=== PATIENT | male | born 1975 | race Caucasian/White ===

== ENCOUNTER 2016-08-26 12:05 | Emergency (ER) | payer BC, MEDICAID ==
[2016-08-26] MEDS ORDERED: PREDNISONE 20 MG TABLET PO ONE (12:29)
[2016-08-26] MEDS ORDERED: IPRATROPIUM/ALBUTEROL 0.5-2.5 MG/3 ML AMPUL NEB ONE (12:29)
--- NOTE | 2016-08-26 12:31 | ER Document Report ---
ED Medical Screen (RME) - General Chief Complaint: Cough Stated Complaint: DIFFICULTY BREATHING Notes: Patient has had increasing difficulty breathing and cough and chest congestion for the past week. He has a history of sarcoid and is on home nebulizers and treatments with Advair, Spiriva, and DuoNeb. He is coughing a lot and not getting up a lot of phlegm. Has not had a fever. These symptoms are similar to ones he's had in the past when he's had pneumonia. No smoker for 5 years Patient has fine expiratory wheezes bilaterally. TRAVEL OUTSIDE OF THE [place] IN LAST 30 DAYS: No - Related Data Allergies/Adverse Reactions: No Known Allergies Allergy (Verified 08/26/16 12:12) Past Medical History Pulmonary Medical History: Reports: Hx Asthma Renal/ Medical History: Denies: Hx Peritoneal Dialysis Psychiatric Medical History: Denies: Hx Depression Past Surgical History: Reports: Hx Vascular Surgery - left leg artery repaired from trauma - Immunizations Hx Diphtheria, Pertussis, Tetanus Vaccination: Yes - 2009 Physical Exam - Vital signs Vitals: Temp Pulse Resp BP Pulse Ox 98.1 F 65 18 123/81 96 08/26/16 12:11 08/26/16 12:11 08/26/16 12:11 08/26/16 12:11 08/26/16 12:11 Course - Vital Signs Vital signs: Temp Pulse Resp BP Pulse Ox 98.1 F 65 18 123/81 96 08/26/16 12:11 08/26/16 12:11 08/26/16 12:11 08/26/16 12:11 08/26/16 12:11
--- NOTE | 2016-08-26 13:52 | ER Document Report ---
ED Respiratory Problem - General Mode of Arrival: Ambulatory Information source: Patient TRAVEL OUTSIDE OF THE [place] IN LAST 30 DAYS: No - HPI Patient complains to provider of: Other - sarcoid Onset: Other - see HPI note Associated symptoms: Chest pain/discomfort, Congestion, Short of breath Similar symptoms previously: Yes Recently seen / treated by doctor: No - General Chief Complaint: Cough Stated Complaint: DIFFICULTY BREATHING Notes: Patient is a 40-year-old male presents to emergency department for difficulty breathing, cough, and chest congestion. Patient has a history of sarcoid and is on multiple nebulizer treatments, including Advair, Spiriva, and DuoNebs. Patient was diagnosed with sarcoid 6 years ago by a certified teacher assistant in [place]. Patient states that he lost his dad and his insurance changed so he was no longer able to see that certified teacher assistant anymore. Patient states that his primary care physician prescribes his nebulizer medications. Patient states he also has a rescue inhaler, which he has been using more frequently over the last couple of weeks. Patient is a former smoker but has not smoked in 5 years. Patient has also had a history of pneumonia. Patient states he is coughing more than usual and it is worse at night. Patient states he has a tightness that is relieved with breathing treatments for that. Return doctors a couple of hours. Patient states he had a blood clot 2009 after a surgery. Patient denies any fevers or chills. Patient has no known allergies. (HARISH LEA) - Related Data Allergies/Adverse Reactions: No Known Allergies Allergy (Verified 08/26/16 12:12) Past Medical History - General Information source: Patient - Social History Smoking Status: Former Smoker Chew tobacco use (# tins/day): No Frequency of alcohol use: None Drug Abuse: None Family History: None Patient has suicidal ideation: No Patient has homicidal ideation: No - Medical History Medical History: Other - sarcoid Pulmonary Medical History: Reports: Hx Asthma Past Surgical History: Reports: Hx Vascular Surgery - left leg artery repaired from trauma - Immunizations Hx Diphtheria, Pertussis, Tetanus Vaccination: Yes - 2009 Hx Pneumococcal Vaccination: 05/06/11 Review of Systems - Review of Systems Constitutional: No symptoms reported EENT: See HPI, Nose congestion Cardiovascular: See HPI, Chest pain Respiratory: See HPI, Cough, Short of breath Gastrointestinal: No symptoms reported Genitourinary: No symptoms reported Male Genitourinary: No symptoms reported Musculoskeletal: No symptoms reported Skin: No symptoms reported Hematologic/Lymphatic: No symptoms reported Neurological/Psychological: No symptoms reported -: Yes All other systems reviewed and negative Physical Exam - Vital signs Interpretation: Normal - General General appearance: Appears well, Alert In distress: Mild - HEENT Head: Normocephalic, Atraumatic Eyes: Normal Pupils: PERRL Mucous membranes: Moist - Respiratory Respiratory status: No respiratory distress Chest status: Nontender Breath sounds: Wheezing - expiratory wheezes Chest palpation: Normal - Cardiovascular Rhythm: Regular Heart sounds: Normal auscultation Murmur: No - Abdominal Inspection: Normal Distension: No distension Bowel sounds: Normal Tenderness: Nontender Organomegaly: No organomegaly - Back Back: Normal, Nontender - Extremities General upper extremity: Normal inspection, Normal ROM, Normal strength General lower extremity: Normal inspection, Normal ROM, Normal strength - Neurological Neuro grossly intact: Yes Cognition: Normal Orientation: AAOx4 Germán Coma Scale Eye Opening: Spontaneous Germán Coma Scale Verbal: Oriented [place] Coma Scale Motor: Obeys Commands [place] Coma Scale Total: 15 Speech: Normal Sensory: Normal - Psychological Associated symptoms: Normal affect, Normal mood - Skin Skin Temperature: Warm Skin Moisture: Dry Course - Re-evaluation Re-evalutation: 08/26/16 14:44 Patient with history of sarcoidosis once. Advair and home nebulizers presents with a one-week history of increasing cough. No fever no chills nonproductive no nausea vomiting diarrhea weight loss or night sweats. He denies a history of smoking. He had a DVT and number of years ago but no PE no shortness of breath exertional chest pain or dyspnea on exertion. No cardiac history. Chest x-ray is negative patient improved with albuterol and prednisone. Going to discharge him on prednisone Augmentin is immunocompromised follow up with his private care physician one to 2 days and return for increasing worsening or new symptoms. Patient's vital signs are stable he is in no respiratory distress and O2 sat is 96% on room air. 08/27/16 05:37 (MIKAELA CAZARES) - Vital Signs Vital signs: Temp Pulse Resp BP Pulse Ox 98.5 F 70 16 111/77 93 08/26/16 15:20 08/26/16 15:20 08/26/16 15:20 08/26/16 15:20 08/26/16 15:20 Discharge - Discharge Clinical Impression: sarcoidosis Acute bronchitis Qualifiers: Bronchitis organism: unspecified organism Qualified Code(s): J20.9 - Acute bronchitis, unspecified Condition: Stable Disposition: HOME, SELF-CARE Additional Instructions: Bronchitis You have acute bronchitis. This disease is an infection or inflammation of the air passageways in your lungs. Symptoms usually include cough, low grade fever, shortness of breath, and wheezing. The cough usually persists for a couple of weeks. Most cases of bronchitis get better without antibiotics. We prescribe antibiotics when we believe bacteria are damaging your airways, or if there's high risk the bronchitis will worsen into pneumonia. Increase your fluid intake. A cool mist humidifier may make your lungs more comfortable. An expectorant (cough medicine that loosens phlegm) can help. If you smoke, STOP!!! Recovery from bronchitis can be somewhat slow, but you should see improvement within a day or two. Repeated episodes of bronchitis may result in lung damage -- for example, chronic bronchitis, recurrent pneumonias, or emphysema. Call the doctor if you develop increasing fever, shortness of breath, chest pain, bloody sputum, or otherwise worsen. If you have not improved at all after several days, contact the physician. Follow-up with her primary care physician one to 2 days return for increasing worsening or new symptoms Prescriptions: Amox Tr/Potassium Clavulanate [Augmentin 875-125 Tablet] 1 tab PO BID 10 Days Prednisone [Deltasone 20 mg Tablet] 3 tab PO DAILY 5 Days Scribe Attestation: 08/26/16 14:46 I personally performed the services described in the documentation reviewed the documentation recorded by my scribe in my presence and it accurately and completely records my words and actions (MIKAELA CAZARES) Scribe Documentation - Scribe Written by Enmanuel:: Harish Lea 08/26/16 15:55 acting as scribe for :: Иван
[2016-08-26 15:24] VITALS: BP 111/77
== END 2016-08-26 15:22 | disposition home or self-care (01) ==
LOC: ER 12:05
DX: D86.9 Sarcoidosis, unspecified (principal); J20.9 Acute bronchitis, unspecified; R05 Cough; R06.02 Shortness of breath; R09.89 Other specified symptoms and signs involving the circulatory and respiratory systems; Z87.891 Personal history of nicotine dependence
CPT/HCPCS: 94640; 99283; 87070; 87205; 71020; J7512; J7620

== ENCOUNTER 2016-08-27 17:38 | Inpatient (IN) | payer MEDICAID ==
--- NOTE | 2016-08-27 18:18 | ER Document Report ---
ED Respiratory Problem - General Stated Complaint: SHORT OF BREATH Time seen by provider: 18:16 Mode of Arrival: Medic Information source: Patient Notes: This is a 40-year-old man with a history of sarcoidosis of, pneumonia, the VTE who presents to the emergency room with progressive shortness of breath over the last week and half associate with a nonproductive cough. Patient was evaluated in the emergency room yesterday, treated with nebs and steroids and released. EMS was called to his home because of worsening shortness of breath despite 4-5 nebs at home today. EMS reports that the patient's oxygen saturation was 89% on room air. He was treated by EMS with 2 nebs, IV Solu- Medrol and transported to the ER. Meds: Don't nebs, Advair, Spiriva, rescue albuterol, prednisone since yesterday. No known drug allergies Primary care physician: Family care in [place] TRAVEL OUTSIDE OF THE [place] IN LAST 30 DAYS: No - HPI Patient complains to provider of: COPD Onset: Last week Duration: Continuous Initiating Event: No: Allergy, Aspiration/Choking, Exertion, Exposure to chemicals, Exposure to dust, Exposure to fumes, Exposure to mold, Exposure to smoke, Out of meds, Sports/exercise, URI, Other Quality of pain: No pain Severity: None Pain Level: Denies Context: Hx COPD, Other - Sarcoidosis Short of Breath: Moderate Cough: Nonproductive Sputum amount: Scant Sputum color: Singer At home treatment: Bronchodilators EMS treatments: Bronchodilators, Solumedrol Associated symptoms: Congestion, Cough, Short of breath, Wheezing Similar symptoms previously: Yes Recently seen / treated by doctor: Yes - Related Data Allergies/Adverse Reactions: No Known Allergies Allergy (Verified 08/27/16 19:52) Home Medications: Current Home Medications Albuterol Sulfate [Proair HFA] 2 puff IN Q4H PRN 08/27/16 [History] Past Medical History - General Information source: Patient - Social History Smoking Status: Former Smoker Cigarette use (# per day): No - quit 5 years ago Chew tobacco use (# tins/day): No Smoking Education Provided: No Frequency of alcohol use: None Drug Abuse: None Lives with: Family Family History: None Patient has suicidal ideation: No Patient has homicidal ideation: No - Past Medical History Cardiac Medical History: Reports: None Pulmonary Medical History: Reports: Hx Asthma, Hx COPD, Other - Pulmonary fibrosis EENT Medical History: Reports: None Neurological Medical History: Reports: None Endocrine Medical History: Reports: None Renal/ Medical History: Reports: None Malignancy Medical History: Reports None GI Medical History: Reports: None Musculoskeltal Medical History: Reports None Skin Medical History: Reports None Psychiatric Medical History: Denies: Hx Depression Traumatic Medical History: Reports: None Past Surgical History: Reports: Hx Vascular Surgery - left leg artery repaired from trauma - Immunizations Hx Diphtheria, Pertussis, Tetanus Vaccination: Yes - 2009 Hx Pneumococcal Vaccination: 05/06/11 Review of Systems - Review of Systems Constitutional: denies: Chills, Fever EENT: See HPI Cardiovascular: No symptoms reported Respiratory: See HPI Gastrointestinal: No symptoms reported Genitourinary: No symptoms reported Male Genitourinary: No symptoms reported Musculoskeletal: No symptoms reported Skin: No symptoms reported Hematologic/Lymphatic: No symptoms reported Neurological/Psychological: No symptoms reported Physical Exam - Vital signs Vitals: Temp Pulse Resp BP Pulse Ox 97.8 F 120 H 18 113/79 96 08/27/16 17:45 08/27/16 17:45 08/27/16 17:45 08/27/16 17:45 08/27/16 17:45 Notes: Physical exam: GENERAL: 40-year-old man, alert and oriented 3, appears short of breath HEAD: Atraumatic, normocephalic. EYES: Pupils equal round and reactive to light, extraocular movements intact, sclera anicteric, conjunctiva are normal. ENT: TMs normal, nares patent, oropharynx clear without exudates. Moist mucous membranes. NECK: Normal range of motion, supple without lymphadenopathy or JVD. LUNGS: Bilateral wheezing, accessory muscle use. HEART: Regular rate and rhythm without murmurs, rubs or gallops. ABDOMEN: Soft, normoactive bowel sounds. No tenderness to palpation. No guarding, no rebound. No masses appreciated. EXTREMITIES: Normal range of motion, no pitting or edema. No clubbing or cyanosis. NEUROLOGICAL: Cranial nerves II through XII grossly intact. Normal speech, normal gait. PSYCH: Normal mood, normal affect. SKIN: Warm, Dry, normal turgor, no rashes or lesions noted. Course - Vital Signs Vital signs: Temp Pulse Resp BP Pulse Ox 97.6 F 86 17 99/59 L 96 08/28/16 03:49 08/28/16 03:49 08/28/16 03:49 08/28/16 03:49 08/28/16 03:49 - Laboratory Result Diagrams: 08/27/16 18:10 08/27/16 18:10 Laboratory results interpreted by me: 08/27/16 08/27/16 18:10 18:10 WBC 12.1 H Seg Neutrophils % 90.2 H Lymphocytes % 5.9 L Monocytes % 2.1 L Absolute Neutrophils 10.9 H Glucose 129 H - Diagnostic Test Radiology reviewed: Image reviewed, Reports reviewed - Chest x-ray shows chronic changes from sarcoidosis. CTA shows no evidence of PE. - EKG Interpretation by Me Rate: Tachycardia Rhythm: NSR - SR vrate 99, nonspecific ST changes. No acute ST-T wave changes. Critical Care Note - Critical Care Note Total time excluding time spent on procedures (mins): 60 Discharge - Discharge Clinical Impression: acute COPD exacerbation Condition: Stable Disposition: ADMITTED INPATIENT Admitting Provider: Hospitalist - Dr. Scales Unit Admitted: Telemetry
[2016-08-27] MEDS ORDERED: CEFTRIAXONE 1 GM/D5W RTU 50 ML IV ONE (18:19)
[2016-08-27 18:21] LABS: ABSOLUTE EOSINOPHILS # (AUTO) 0.2 10^3/uL (0.0-0.6); ABSOLUTE LYMPHOCYTES (AUTO) 0.7 10^3/uL (0.5-4.7); ABSOLUTE MONOCYTES (AUTO) 0.3 10^3/uL (0.1-1.4); ABSOLUTE NEUT (AUTO) 10.9 10^3/uL (1.7-8.2); BASOPHILS % (AUTO) 0.3 % (0-2); EOSINOPHILS % (AUTO) 1.5 % (0-6); HEMATOCRIT 42.7 % (37.9-51.0); HEMOGLOBIN 14.2 g/dL (13.5-17.0); HGB HCT DIFFERENCE -0.1; LYMPHOCYTES % (AUTO) 5.9 % (13-45); MEAN CORPUSCULAR HEMOGLOBIN 30.1 pg (27.0-33.4); MEAN CORPUSCULAR HGB CONC 33.4 g/dL (32.0-36.0); MEAN CORPUSCULAR VOLUME 90 fl (80-97); MONOCYTES % (AUTO) 2.1 % (3-13); RED BLOOD COUNT 4.74 10^6/uL (4.35-5.55); RED CELL DISTRIBUTION WIDTH 13.6 % (11.5-14.0); SEGMENTED NEUTROPHILS % (AUTO) 90.2 % (42-78); WHITE BLOOD COUNT 12.1 10^3/uL (4.0-10.5)
[2016-08-27] MEDS ORDERED: MAGNESIUM SULFATE/D5W 100 ML IV SCH (18:30)
[2016-08-27 18:34] LABS: ALANINE AMINOTRANSFERASE 25 U/L (21-72); ALBUMIN 4.1 g/dL (3.5-5.0); ALKALINE PHOSPHATASE 76 U/L (38-126); ANION GAP 15 (5-19); ASPARTATE AMINO TRANSFERASE 20 U/L (17-59); BILIRUBIN,DIRECT 0.3 mg/dL (0.0-0.4); BILIRUBIN,TOTAL 0.4 mg/dL (0.2-1.3); BLOOD UREA NITROGEN 13 mg/dL (7-20); CALCIUM 9.9 mg/dL (8.4-10.2); CARBON DIOXIDE 25 mmol/L (22-30); CHLORIDE 105 mmol/L (98-107); CREATININE RESULT 0.78 mg/dL (0.52-1.25); GLUCOSE 129 mg/dL (75-110); POTASSIUM 4.6 mmol/L (3.6-5.0); SODIUM 144.9 mmol/L (137-145); TOTAL PROTEIN 7.7 g/dL (6.3-8.2)
[2016-08-27] MEDS ORDERED: IPRATROPIUM/ALBUTEROL 0.5-2.5 MG/3 ML AMPUL NEB ONE ×2 (19:22→20:50)
--- NOTE | 2016-08-27 21:37 | EKG REPORT ---
SEVERITY:- ABNORMAL ECG - SINUS TACHYCARDIA CONSIDER LEFT VENTRICULAR HYPERTROPHY NONSPECIFIC T ABNORMALITIES, INFERIOR LEADS : Confirmed by: Yovani Hudson 27-Aug-2016 21:35:18
[2016-08-27 21:41] LABS: APPEARANCE,URINE CLEAR; BILIRUBIN,URINE NEGATIVE (NEGATIVE); GLUCOSE, URINE NEGATIVE (NEGATIVE); KETONES,URINE NEGATIVE (NEGATIVE); LEUKOCYTE ESTERASE,URINE NEGATIVE (NEGATIVE); NITRITE,URINE NEGATIVE (NEGATIVE); PROTEIN,URINE NEGATIVE (NEGATIVE); URINE SPECIFIC GRAVITY 1.049; UROBILINOGEN,URINE NEGATIVE mg/dL (<2.0)
[2016-08-27] MEDS ORDERED: ALBUTEROL SULFATE 0.083% NEB 2.5 MG/3 ML AMPUL NEB PRN (23:20)
[2016-08-27] MEDS ORDERED: GUAIFENESIN SYRP 200 MG/10 ML UDC PO PRN (23:20)
[2016-08-27] MEDS ORDERED: ACETAMINOPHEN 325 MG TABLET PO PRN (23:20)
[2016-08-27] MEDS ORDERED: INSULIN LISPRO 100 UNIT/ML 3 ML VIAL SUBCUT PRN (23:22)
[2016-08-27] MEDS ORDERED: DEXTROSE 40% GEL 15 GM TUBE PO PRN ×2 (23:22)
[2016-08-27] MEDS ORDERED: DEXTROSE 50%-WATER 25 GM/50 ML DISP.SYRIN IV PRN ×2 (23:22)
[2016-08-27] MEDS ORDERED: GLUCAGON,HUMAN RECOMB 1 MG INJ IM PRN (23:22)
[2016-08-27] MEDS ORDERED: AZITHROMYCIN INJ 500 MG VIAL IV PRN (23:36)
[2016-08-27] MEDS ORDERED: AZITHROMYCIN 500 MG in DEXTROSE 5%-WATER 250 ML IV SCH (23:45)
[2016-08-28 05:46] LABS: HEMATOCRIT 39.6 % (37.9-51.0); HEMOGLOBIN 13.4 g/dL (13.5-17.0); HGB HCT DIFFERENCE 0.6; MEAN CORPUSCULAR HEMOGLOBIN 30.2 pg (27.0-33.4); MEAN CORPUSCULAR HGB CONC 33.7 g/dL (32.0-36.0); MEAN CORPUSCULAR VOLUME 90 fl (80-97); RED BLOOD COUNT 4.43 10^6/uL (4.35-5.55); RED CELL DISTRIBUTION WIDTH 13.9 % (11.5-14.0); WHITE BLOOD COUNT 10.6 10^3/uL (4.0-10.5)
[2016-08-28] MEDS ORDERED: LANSOPRAZOLE 30 MG TAB.RAP.DR PO SCH (06:00)
[2016-08-28 06:26] LABS: BASOPHILS % (MANUAL) 0 % (0-2); EOSINOPHILS % (MANUAL) 0 % (0-6); LYMPHOCYTES % (MANUAL) 2 % (13-45); TOTAL CELLS COUNTED 100
[2016-08-28 06:27] LABS: ANISOCYTOSIS SLIGHT
[2016-08-28] MEDS ORDERED: ENOXAPARIN SODIUM INJ 40 MG/0.4 ML DISP.SYRIN SUBCUT SCH (08:00)
[2016-08-28] MEDS: IPRATROPIUM/ALBUTEROL 0.5-2.5 MG/3 ML AMPUL NEB SCH ×2 (08:25→14:02)
[2016-08-28] MEDS ORDERED: NICOTINE 7 MG/24 HR PATCH.TD24 TD PRN (08:57)
--- NOTE | 2016-08-28 08:57 | PDOC H&P ---
History of Present Illness Admission Date/PCP: 08/27/16 22:14 PCP None Patient complains of: SOB History of Present Illness: WYATT ELIAS is a 40 year old male with underlying nonhome O2 dependent COPD, along with underlying sarcoidosis, and a history of DVT in 2009 after surgery, with Coumadin having being stopped by his physician, who presents to the emergency room for evaluation of approximately a 10 day history of slowly progressive difficulty breathing, with associated dry cough. Breathing is particularly worse with much of any exertion. He denies fever chills, nausea vomiting, diarrhea or dysuria. No chest pain. Was evaluated in the emergency room on the and discharged home with with nebs and steroids. However, EMS was called to his home by because of worsening shortness of breath despite 4-5 nebulizer treatments at home. 89% saturation on room air per EMS. Was treated en route with intravenous Solu- Medrol, along with 2 further nebulizer treatments. Breathing has been improved significantly, but patient still does not feel comfortable going home. States that even on a good day he will wheeze, which is typically relieved with albuterol treatments in the morning. No previous intubation for respiratory difficulty. No hospital stay or antibiotic use over the past 3 months. Patient has been discussed with emergency room physician who evaluated the patient. . Laboratory results are listed in [facility] and are reviewed. X-ray summary results are listed below, with full report(s) reviewed. . EKG reviewed. And compared to prior tracing from November 26 of last year. Social history/personal habits: Patient has a long-term live-in partner. Has children. Chews tobacco. 2 beers a day. No illicit drug use. Allergies/adverse reactions NKDA. Home medications prescription medications basically consist of Spiriva, Advair, DuoNeb's, and albuterol rescue inhaler. Home medications initially autopopulated into [facility] may not accurately reflect patient's true medications, dosages, and/or frequencies. special effects technician to reconcile medications. Unfortunately, patient not completely certain of all his dosages/frequencies. REVIEW OF SYSTEMS: Constitutional: No fever or chills. Eyes: No current vision complaints. ENT: No swallowing problems or complaints. Partial hearing loss. Pulmonary: See history and present illness. Cardiovascular: No current complaints, including chest pain. Gastrointestinal: No current complaints, including nausea or vomiting. Skin: No current complaints, including rashes. Hematologic: No unusual easy bruising or bleeding. Neurologic: No current complaints, including numbness or tingling. Musculoskeletal: Joint pain from arthritis. Psychiatric: No current complaints, including anxiety or depression. Endocrine: No current complaints, including polyuria. Genitourinary: No current complaints, including dysuria. PHYSICAL EXAMINATION: 5 feet 6 inches tall. 58.97 kg. BMI 21 kg/m. Blood pressure 109/76. Pulse 83 and regular. 96% saturation on 2 L oxygen per nasal cannula. Respirations are 19 and unlabored. Temperature 97.3. Thin otherwise well-developed male, who appears a number of years older than his stated age. Pleasant awake alert and cooperative. Appears to feel perhaps a bit under the weather, so to speak. Mildly anxious, without agitation. Skin is warm and dry. No grossly obvious evidence of rash in areas of skin examined. No subcutaneous nodules palpated. ENT: Hearing grossly normal to normal conversation. Tongue midline on protrusion pink and slightly tacky. Eyes: No scleral icterus. Pupils equal and reactive to light at 4 mm. Effort conjunctivae. Neck is supple and nontender to gentle active range of motion and palpation. Midline trachea. No palpable thyroid nodule mass enlargement or tenderness. Lymphatic: No palpable cervical or clavicular nodes. Neck and lymphatic exams limited by patient body habitus. Psychiatric: Reasonable insight into acute and chronic medical issues. Oriented to time location and why here. Lungs: Auscultation reveals equal breath sounds bilaterally. No use of accessory respiratory muscles. Subtle brief early expiratory wheezing bilaterally. Cardiovascular: Heart regular rate and rhythm, without gallop murmur or rub. No carotid or abdominal aortic bruits. No ankle edema. Abdomen: soft, slightly distended nontender with positive bowel sounds. Unable to adequately evaluate abdomen for masses or organomegaly due to distention. Extremities: No calf tenderness to compression. No grossly obvious visual evidence of calf swelling. Gentle manipulation of lower extremities fails to reveal any obvious evidence of injury or instability to knees hips or ankles. Neurologic: Moves upper extremities grossly normally. Patellar reflexes absent. Dorsiflexion and plantarflexion of feet 5 / 5 and symmetric. Past Medical History Cardiac Medical History: Reports: None, DVT - History of Denies: Congestive Heart Failure, Myocardial Infarction, Hyperlipidema, Hypertension, Pulmonary Embolism Pulmonary Medical History: Reports: Chronic Obstructive Pulmonary Disease (COPD) , Pneumonia, Other - Pulmonary fibrosis and sarcoidosis Denies: Asthma EENT Medical History: Reports: Ears - Partial hearing loss Neurological Medical History: Denies: Hemorrhagic CVA, Ischemic CVA, Seizures Endocrine Medical History: Denies: Diabetes Mellitus Type 1, Diabetes Mellitus Type 2, Hyperthyroidism, Hypothyroidism Renal/ Medical History: Reports: None Malignancy Medical History: Reports: None GI Medical History: Denies: Cirrhosis, Gastroesophageal Reflux Disease, Hepatitis, Peptic Ulcer Disease Musculoskeltal Medical History: Reports: Arthritis Skin Medical History: Reports: None Psychiatric Medical History: Reports: Tobacco Dependency Denies: Alcohol Dependency, Depression, General Anxiety Disorder, Substance Abuse Traumatic Medical History: Reports: None Hematology: Reports: None Infectious Medical History: Reports: Methicillin-Resistant Staph Aureus - History of skin infection Denies: Clostridium Difficile, Hepatitis B, Hepatitis C Past Surgical History Past Surgical History: Reports: Vascular Surgery - left leg artery repaired from trauma Social History Information Source: Patient, Emergency Med Personnel, [facility] Records Lives with: Spouse/Significant other Smoking Status: Unknown if Ever Smoked - Chews tobacco Frequency of Alcohol Use: Social - 2 beers a day Hx Recreational Drug Use: No Drugs: None Hx Prescription Drug Abuse: No - Advance Directive Resuscitation Status: Full Code Surrogate healthcare decision maker:: His long-term live-in partner Eleni Family History Family History: None Parental Family History Reviewed: Yes - father with lung problems. Mother alive and healthy. Children Family History Reviewed: Yes - Healthy Sibling(s) Family History Reviewed.: Yes - Healthy Medication/Allergy Home Medications: RX: Albuterol Sulfate [Proair HFA] 2 puff IN Q4HP PRN 08/27/16 Levofloxacin [Levaquin 750 mg Tablet] 750 mg PO DAILY #10 tab 08/28/16 RX: Fluticasone/Salmeterol [Advair 250-50 Diskus 14 Dose/Diskus] 1 puff IH Q12 08/28/16 RX: Ipratropium/Albuterol Sulfate [Iprat-Albut 0.5-3(2.5) mg/3 ml] 3 ml NEB Q6 08/28/16 RX: Prednisone [Deltasone 20 mg Tablet] 60 mg PO DAILY #50 tablet 08/28/16 RX: Tiotropium [place] [Spiriva Handihaler 5 Cap/Kit (18 Mcg/Cap)] 1 puff IH DAILY 08/28/16 Allergies/Adverse Reactions: No Known Allergies Allergy (Verified 08/27/16 19:52) Physical Exam Vital Signs: Temp Pulse Resp BP Pulse Ox 97.8 F 120 H 17 109/76 98 08/27/16 17:45 08/27/16 17:45 08/27/16 22:01 08/27/16 22:01 08/27/16 22:01 Results Impressions: Chest X-Ray 08/27/16 17:55 IMPRESSION: There are chronic lung changes consistent with the given history of sarcoidosis. Chest/Abdomen CTA 08/27/16 19:22 IMPRESSION: NORMAL CTA OF THE CHEST. NO PULMONARY EMBOLI. STABLE CHRONIC SCARRING AND PULMONARY FIBROSIS. NO SIGNIFICANT CHANGE. NO ACUTE FINDINGS. Assessment & Plan - Diagnosis (1) COPD exacerbation Is this a current diagnosis for this admission?: YesPlan: Patient will be admitted under COPD exacerbation protocol. Incentive spirometry twice a day. Scheduled DuoNeb's. PRN albuterol nebs daily prednisone. Prevacid for gastritis prophylaxis. Antibiotics will consist of Rocephin and intravenous Zithromax.. I strongly encouraged patient to notify staff should patient feel that his breathing is worsening. Patient is a full code. I have strongly urged patient to be careful getting out of bed, to avoid a fall with injury. Knee high SCDs for DVT prophylaxis, along with subcutaneous Lovenox Impression and plans were discussed with patient, who concurs. Time spent in evaluation and management of patient: 64 minutes. (2) Sarcoidosis Is this a current diagnosis for this admission?: Yes (3) Tobacco dependency Is this a current diagnosis for this admission?: YesPlan: When necessary nicotine patch. (4) DVT prophylaxis Is this a current diagnosis for this admission?: Yes - Inpatient Certification Based on my medical assessment, after consideration of the patient's comorbidities, presenting symptoms, or acuity I expect that the services needed warrant INPATIENT care.: Yes I certify that my determination is in accordance with my understanding of Medicare's requirements for reasonable and necessary INPATIENT services [42 CFR 412.3e].: Yes Medical Necessity: Significant Comorbidiites Make Outpatient Treatment Too Risky , Need Close Monitoring Due to Risk of Patient Decompensation, Need for Nebulizer Therapy and Monitoring of Response, Need for IV Antibiotics, Risk of Complication if Not Cared For in Hospital Post Hospital Care: D/C or Transfer Summary
--- NOTE | 2016-08-28 09:58 | Physician Advisory Note ---
Physician Advisor ProgressNote .: Pursuant to the plan for [facility], I have reviewed the medical record for this patient. Physician Advisor Statement: Possible documentation opportunities if attending agrees: 1. "Mild Acute Hypoxemic Resp Failure w/sat 89% RA for EMS, (+)accessory muscle use still in ED" 2. "Suspected Acute bronchitis" [what is being tx'd w/abx] 3. "Medical Necessity" - Please document the reasons pt still not sufficiently stabilized for d/c to home on 08/28, to support Inpt status determination. - If pt is actually sufficiently improved today for d/c to home, please document clearly that pt was definitely not expected, at time of admission, to be sufficiently improved for d/c before 2 MNs of hospital care, & that you were surprised that pt was so much improved today (As long as you agree, of course. If you believe pt should have been Outpt Obs to start, please order Obs before you d/c pt. This is a Medicaid pt, so Obs order change can be made retroactively.) As always, if concerned about any unstable VS or abnormal labs, please comment on them - what bad things they might indicate, why they concern you - & note what doing about them. Please also document each day the potential clinical problems you are concerned could occur if pt not kept in hospital for tx at this time. (These points are linder - if present in each note, attending's status decision should be sufficiently supported.) Discussion: 40yo male w/ chronic co-morbidities including COPD, pulm firosis/sarcoidosis, DVT post surg, some wheezing at baseline - despite already on Advair, Spiriva, Duonebs, & prn Albuterol inhaler - presented 08/27 PM to ED w/worsening SOB despite tx the day before in ED w/ nebs & steroid, & use of 4-5 nebs at home. EMS found sat 89% RA, & gave 2 nebs , IV SOlumedrol. In ED, pt appeared SOB, w/(+) accessory muscle use per ED dr. RANGEL gave duonebs x2, Rocephin IV. (+) HR 120, RR18, BP 113/79, WBC 12.1, Hgb 14.2, Na 145, K 4.6, glc 129, CT-A neg for PE. (+) "subtle, brief wheezing" for attending, pt's breathing after ED txs "much better but pt still not comfortable going home". Attending ordered prednisone 60mg daily (current guidelines recommend po prednisone rather than IV Solumedrol when possible), IV Rocephin & Zithromax, Duonebs q6h + prn, incentive spirometry bid, tele monitoring, q4h VS, I/Os, FSBS checks, Inpt status. Status: Pt with COPD not needing O2 at baseline, underlying pulm fibrosis from sarcoidosis, some wheezes at baseline, who had already been tx'd the day before for COPD exac & released, but worsened despite outpt tx. He had tachycardia & leukocytosis & hypoxemia, so could be considered for possible sepsis dx initially in addition to acute resp failure. His underlying significant lung dz & significantly advanced baseline tx's mean he is likely to require significantly more aggressive care & closer/longer monitoring for response to tx 's when exacerbations occur than someone with "garden-variety" mild COPD. He is much more likely to develop dangerous further worsening, such as worsening acute respiratory failure &/or other organ failures, when he has decompensations. He was being admitted just before [place]. He could be expected, at time of adm, to require at least 25 more hrs of care + close monitoring in inpatient hospital setting (which would include 2 MNs), medically reasonable & necessary to protect pt's health, safety, & medical condition before he can be expected to be found sufficiently stable for safe d/c. If attending agrees w/this assessment, pt is appropriate for Inpt status. If attending does not agree, & feels pt should have been Outpt Obs initially & should go home today, then this case should be Outpt Obs from the time of initial order. Thanks for your help with documentation accuracy/specificity improvement! Jovana Tirado MD [facility] Physician Advisor, Fellow of Hospital Medicine
[2016-08-28] MEDS ORDERED: PREDNISONE 20 MG TABLET PO SCH (10:00)
[2016-08-28] MEDS ORDERED: CEFTRIAXONE 1 GM/D5W RTU 50 ML IV SCH (10:00)
[2016-08-28 15:53] VITALS: BP 111/64
--- NOTE | 2016-08-28 16:54 | PDOC DISCHARGE SUMMARY ---
General - Admit/Disc Date/PCP Admission Date/Primary Care Provider: 08/27/16 23:20 Discharge Date: 08/28/16 - Discharge Diagnosis (1) COPD exacerbation Is this a current diagnosis for this admission?: YesSummary: Patient was treated with steroids and nebs He was also discharged on Levaquin He did not need oxygen supplementation at discharge (2) Sarcoidosis Is this a current diagnosis for this admission?: YesSummary: Patient has pulmonary sarcoidosis with evidence of pulmonary fibrosis on chest x -ray Patient was discharged on steroids He was advised to follow-up with pulmonary as an outpatient (3) Tobacco dependency Is this a current diagnosis for this admission?: Yes - Additional Information Resuscitation Status: Full Code Discharge Diet: As Tolerated Discharge Activity: Activity As Tolerated Home Medications: Albuterol Sulfate [Proair HFA] 2 puff IN Q4HP PRN 08/27/16 Fluticasone/Salmeterol [Advair 250-50 Diskus 14 Dose/Diskus] 1 puff IH Q12 08/28 Ipratropium/Albuterol Sulfate [Iprat-Albut 0.5-3(2.5) mg/3 ml] 3 ml NEB Q6 08/28 Levofloxacin [Levaquin 750 mg Tablet] 750 mg PO DAILY #10 tab 08/28/16 Prednisone [Deltasone 20 mg Tablet] 60 mg PO DAILY #50 tablet 08/28/16 Tiotropium [place] [Spiriva Handihaler 5 Cap/Kit (18 Mcg/Cap)] 1 puff IH DAILY 08/28/16 History of Present Illness Patient complains of: Shortness of breath History of Present Illness: WYATT ELIAS is a 40 year old male Hospital Course Hospital Course: Patient improved somewhat during his short stay He did not have significant hypoxemia, and did improve with steroids Physical Exam Vital Signs: Temp Pulse Resp BP Pulse Ox 97.6 F 84 16 111/64 97 08/28/16 15:50 08/28/16 15:50 08/28/16 15:50 08/28/16 15:50 08/28/16 15:50 Intake & Output 08/27/16 08/28/16 08/29/16 00:59 00:59 00:59 Intake Total 646 Output Total 675 Balance -29 General appearance: PRESENT: no acute distress, thin Head exam: PRESENT: atraumatic, normocephalic Eye exam: PRESENT: conjunctiva pink, EOMI, PERRLA. ABSENT: scleral icterus Ear exam: PRESENT: normal external ear exam Neck exam: ABSENT: carotid bruit, JVD, lymphadenopathy, thyromegaly Respiratory exam: PRESENT: crackles, decreased breath sounds, unlabored Cardiovascular exam: PRESENT: RRR. ABSENT: diastolic murmur, rubs, systolic murmur Pulses: PRESENT: normal dorsalis pedis pul GI/Abdominal exam: PRESENT: normal bowel sounds, soft. ABSENT: distended, guarding, mass, organolmegaly, rebound, tenderness Extremities exam: PRESENT: full ROM. ABSENT: calf tenderness, clubbing, pedal edema Neurological exam: PRESENT: alert, awake, oriented to person, oriented to place , oriented to time, oriented to situation, CN II-XII grossly intact. ABSENT: motor sensory deficit Psychiatric exam: PRESENT: appropriate affect, normal mood. ABSENT: homicidal ideation, suicidal ideation Results Laboratory Results: 08/28/16 04:45 08/28/16 04:45 WBC 10.6 H RBC 4.43 Hgb 13.4 L Hct 39.6 MCV 90 MCH 30.2 MCHC 33.7 RDW 13.9 Plt Count 319 Seg Neutrophils % Not Reportable Lymphocytes % Not Reportable Monocytes % Not Reportable Eosinophils % Not Reportable Basophils % Not Reportable Absolute Neutrophils Not Reportable Absolute Lymphocytes Not Reportable Absolute Monocytes Not Reportable Absolute Eosinophils Not Reportable Absolute Basophils Not Reportable Labs- All tests 24 hr 08/27/16 08/27/16 08/27/16 18:10 18:10 21:30 WBC 12.1 H RBC 4.74 Hgb 14.2 Hct 42.7 MCV 90 MCH 30.1 MCHC 33.4 RDW 13.6 Plt Count 335 Total Counted Seg Neutrophils % 90.2 H Seg Neuts % (Manual) Lymphocytes % 5.9 L Lymphocytes % (Manual) Monocytes % 2.1 L Monocytes % (Manual) Eosinophils % 1.5 Eosinophils % (Manual) Basophils % 0.3 Basophils % (Manual) Absolute Neutrophils 10.9 H Abs Neuts (Manual) Absolute Lymphocytes 0.7 Abs Lymphs (Manual) Absolute Monocytes 0.3 Abs Monocytes (Manual) Absolute Eosinophils 0.2 Absolute Eos (Manual) Absolute Basophils 0.0 Abs Basophils (Manual) Platelet Comment Anisocytosis Sodium 144.9 Potassium 4.6 Chloride 105 Carbon Dioxide 25 Anion Gap 15 BUN 13 Creatinine 0.78 Est GFR ( Amer) > 60 Est GFR (Non-Af Amer) > 60 Glucose 129 H POC Glucose Calcium 9.9 Total Bilirubin 0.4 Direct Bilirubin 0.3 Indirect Bilirubin Not Reportable Neonat Total Bilirubin Not Reportable AST 20 ALT 25 Alkaline Phosphatase 76 Total Protein 7.7 Albumin 4.1 Urine Color YELLOW Urine Appearance CLEAR Urine pH 6.0 Ur Specific [place] 1.049 Urine Protein NEGATIVE Urine Glucose (UA) NEGATIVE Urine Ketones NEGATIVE Urine Blood NEGATIVE Urine Nitrite NEGATIVE Urine Bilirubin NEGATIVE Urine Urobilinogen NEGATIVE Ur Leukocyte Esterase NEGATIVE Urine WBC (Auto) 0 Urine RBC (Auto) 0 Urine Mucus (Auto) RARE Urine Ascorbic Acid NEGATIVE 08/28/16 08/28/16 08/28/16 04:45 06:03 11:35 WBC 10.6 H RBC 4.43 Hgb 13.4 L Hct 39.6 MCV 90 MCH 30.2 MCHC 33.7 RDW 13.9 Plt Count 319 Total Counted 100 Seg Neutrophils % Not Reportable Seg Neuts % (Manual) 91 H Lymphocytes % Not Reportable Lymphocytes % (Manual) 2 L Monocytes % Not Reportable Monocytes % (Manual) 7 Eosinophils % Not Reportable Eosinophils % (Manual) 0 Basophils % Not Reportable Basophils % (Manual) 0 Absolute Neutrophils Not Reportable Abs Neuts (Manual) 9.6 H Absolute Lymphocytes Not Reportable Abs Lymphs (Manual) 0.2 L Absolute Monocytes Not Reportable Abs Monocytes (Manual) 0.7 Absolute Eosinophils Not Reportable Absolute Eos (Manual) 0.0 Absolute Basophils Not Reportable Abs Basophils (Manual) 0.0 Platelet Comment ADEQUATE Anisocytosis SLIGHT Sodium Potassium Chloride Carbon Dioxide Anion Gap BUN Creatinine Est GFR ( Amer) Est GFR (Non-Af Amer) Glucose POC Glucose 119 H 116 H Calcium Total Bilirubin Direct Bilirubin Indirect Bilirubin Neonat Total Bilirubin AST ALT Alkaline Phosphatase Total Protein Albumin Urine Color Urine Appearance Urine pH Ur Specific [place] Urine Protein Urine Glucose (UA) Urine Ketones Urine Blood Urine Nitrite Urine Bilirubin Urine Urobilinogen Ur Leukocyte Esterase Urine WBC (Auto) Urine RBC (Auto) Urine Mucus (Auto) Urine Ascorbic Acid EKG Comments: SINUS TACHYCARDIA [LVHCNV] . CONSIDER LEFT VENTRICULAR HYPERTROPHY [T1IN] . NONSPECIFIC T ABNORMALITIES, INFERIOR LEADS Impressions: Chest X-Ray 04/24/17 17:55 IMPRESSION: There are chronic lung changes consistent with the given history of sarcoidosis. Chest/Abdomen CTA 08/27/16 19:22 IMPRESSION: NORMAL CTA OF THE CHEST. NO PULMONARY EMBOLI. STABLE CHRONIC SCARRING AND PULMONARY FIBROSIS. NO SIGNIFICANT CHANGE. NO ACUTE FINDINGS. Plan Discharge Plan: Discharge follow-up with pulmonary in 1-2 weeks Time Spent: Less than 30 Minutes
[2016-08-28] MEDS ORDERED: AZITHROMYCIN 500 MG in DEXTROSE 5%-WATER 250 ML IV SCH (22:00)
== END 2016-08-28 16:30 | disposition home or self-care (01) | DRG 192 ==
LOC: ER 17:38 → EH 22:14 → UNDOADMIN 22:14 → EH 23:20 → 4S 08-28 01:05 → EH 08-28 01:05
PROVIDERS: ADMIT Family Medicine; ATTEND Family Medicine
PROC: 3E0F73Z Introduction of Anti-inflammatory into Respiratory Tract, Via Natural or Artificial Opening (ICD-10-PCS; principal; 2016-08-28)
DX: J44.1 Chronic obstructive pulmonary disease with (acute) exacerbation (principal); D86.9 Sarcoidosis, unspecified; M19.90 Unspecified osteoarthritis, unspecified site; R00.0 Tachycardia, unspecified; H91.90 Unspecified hearing loss, unspecified ear; F17.220 Nicotine dependence, chewing tobacco, uncomplicated; Z79.899 Other long term (current) drug therapy; Z99.81 Dependence on supplemental oxygen; Z86.718 Personal history of other venous thrombosis and embolism; Z86.14 Personal history of Methicillin resistant Staphylococcus aureus infection; Z87.891 Personal history of nicotine dependence
CPT/HCPCS: 36415; 71010; 71275; 80053; 81001; 82962; 85025; 87040; 93005; 93010; 94640; 94799; 96365; 96368; 99291; J0456; J0696; J1650; J3475; J3490; J7512; J7620

== ENCOUNTER 2016-12-26 16:44 | Emergency (ER) | payer MEDICAID ==
[2016-12-26] MEDS ORDERED: LIDOCAINE 1%/EPINEPHRINE INJ 20 ML VIAL INJ ONE (19:55)
[2016-12-26] MEDS ORDERED: PROMETHAZINE HCL 25 MG TABLET PO ONE (19:56)
[2016-12-26] MEDS ORDERED: DIPH/PERTUSS(ACELL)/TETANUS VAC/PF 0.5 ML SYR (>=10YO) IM ONE (19:56)
[2016-12-26] MEDS ORDERED: OXYCODONE-ACETAMINOPHEN 5-325 MG TABLET PO ONE (19:56)
--- NOTE | 2016-12-26 19:57 | ER Document Report ---
ED Hand/Wrist Injury - General Chief Complaint: Hand Injury Stated Complaint: LEFT HAND INJURY Time Seen by Provider: 12/26/16 17:35 Notes: Patient is a 41-year-old male comes emergency department for chief complaint of accidental laceration to his left hand at the thumb, he states he was working with a skill saw when it slipped and he accidentally hit his hand with it. This happened earlier in the afternoon, he went to urgent care and was sent here. He is not up-to-date on his tetanus. He denies any other injuries. TRAVEL OUTSIDE OF THE [place] IN LAST 30 DAYS: No - Related Data Allergies/Adverse Reactions: No Known Allergies Allergy (Verified 12/26/16 17:08) Past Medical History - General Information source: Patient - Social History Smoking Status: Never Smoker Drug Abuse: None Lives with: Family Family History: None Patient has suicidal ideation: No Patient has homicidal ideation: No - Past Medical History Cardiac Medical History: Reports: Hx DVT - History of Denies: Hx Congestive Heart Failure, Hx Heart Attack, Hx Hypercholesterolemia , Hx Hypertension, Hx Pulmonary Embolism Pulmonary Medical History: Reports: Hx COPD, Hx Pneumonia Denies: Hx Asthma Neurological Medical History: Denies: Hx Seizures Endocrine Medical History: Denies: Hx Diabetes Mellitus Type 1, Hx Diabetes Mellitus Type 2, Hx Hyperthyroidism, Hx Hypothyroidism Renal/ Medical History: Denies: Hx Peritoneal Dialysis GI Medical History: Denies: Hx Cirrhosis, Hx Gastroesophageal Reflux Disease, Hx Hepatitis Musculoskeltal Medical History: Reports Hx Arthritis Psychiatric Medical History: Denies: Hx Depression Infectious Medical History: Reports: Hx MRSA - History of skin infection. Denies: Hx C-Diff, Hx Hepatitis Past Surgical History: Reports: Hx Vascular Surgery - left leg artery repaired from trauma - Immunizations Hx Diphtheria, Pertussis, Tetanus Vaccination: Yes - 2009 Hx Pneumococcal Vaccination: 05/06/11 Review of Systems - Review of Systems Constitutional: No symptoms reported EENT: No symptoms reported Cardiovascular: No symptoms reported Respiratory: No symptoms reported Gastrointestinal: No symptoms reported Genitourinary: No symptoms reported Male Genitourinary: No symptoms reported Musculoskeletal: See HPI Skin: See HPI Hematologic/Lymphatic: No symptoms reported Neurological/Psychological: No symptoms reported Physical Exam - Vital signs Vitals: Temp Pulse Resp BP Pulse Ox 98.8 F 95 18 120/95 H 98 12/26/16 17:10 12/26/16 17:10 12/26/16 17:10 12/26/16 17:10 12/26/16 17:10 Interpretation: Normal - General General appearance: Appears well, Alert In distress: None - HEENT Head: Normocephalic, Atraumatic Eyes: Normal Pupils: PERRL - Respiratory Respiratory status: No respiratory distress Chest status: Nontender Breath sounds: Normal Chest palpation: Normal - Cardiovascular Rhythm: Regular Heart sounds: Normal auscultation Murmur: No - Abdominal Inspection: Normal Distension: No distension Bowel sounds: Normal Tenderness: Nontender Organomegaly: No organomegaly - Back Back: Normal, Nontender - Extremities General upper extremity: Other - Palmar aspect of the hand with a very large 10 cm laceration extending from the base of the thumb all the way to the tip of the wrist on the ulnar side. There is some swelling of the muscle, there is mild bleeding, however there is no arterial bleeding, I can visualize the tendon and it is intact, patient has normal sensation, normal range of motion and strength of the thumb. Normal examination otherwise. General lower extremity: Normal inspection, Nontender, Normal color, Normal ROM , Normal temperature, Normal weight bearing - Neurological Neuro grossly intact: Yes Cognition: Normal Orientation: AAOx4 Germán Coma Scale Eye Opening: Spontaneous Germán Coma Scale Verbal: Oriented Germán Coma Scale Motor: Obeys Commands [place] Coma Scale Total: 15 Speech: Normal Motor strength normal: LUE, RUE, LLE, RLE Sensory: Normal - Psychological Associated symptoms: Normal affect, Normal mood - Skin Skin Temperature: Warm Skin Moisture: Dry Skin Color: Normal Course - Re-evaluation Re-evalutation: Despite the large and irregular laceration with macerated skin there is no evidence of tendon or nerve injury, no large vessel injury, area was thoroughly cleaned, had to place very many sutures because of the macerated skin, however this actually aligned very well. Patient is very independent and hardheaded, I noted that he was using his thumb and hand to tie his shoes without any difficulty. No deficits noted. Patient will be placed on antibiotics because of a long time with open wound and also dirty saw. Discussed wound care, follow -up, return precautions. Patient states understanding and agreement. - Vital Signs Vital signs: Temp Pulse Resp BP Pulse Ox 98.6 F 78 16 138/84 H 97 12/26/16 22:45 12/26/16 22:45 12/26/16 22:45 12/26/16 22:45 12/26/16 22:45 Procedures - Laceration/Wound Repair left hand/wrist Wound length (cm): 10 Wound's Depth, Shape: Linear - linear but with macerated/jagged skin along the wound Laceration pre-procedure: Sterile PPE donned, Sterile drapes applied, Shur- Clens applied Anesthetic type: 1% Lidocaine w/epi Volume Anesthetic (mLs): 6 Wound explored: Clean, No foreign body removed Irrigated w/ Saline (mLs): 70 Wound Debrided: Minimal Wound Repaired With: Sutures Suture Size/Type: 4:0, Nylon Number of Sutures: 29 Layer Closure?: Yes Deep Layer Suture Size/Type: 5:0, Other - vicryl Post-procedure wound care: Sterile dressing applied Post-procedure NV exam normal: Yes Complications: No Notes: Muscle of the hand is swollen, difficult to approximate the wound for suture repair, had to place Vicryl sutures deep to approximate. Before doing this explored carefully, able to visualize the tendon, visualized well, no evidence of injury, no evidence of neurological injury, no great vessel injury or significant bleeding. Irrigated thoroughly before closure. Discharge - Discharge Clinical Impression: Laceration of left hand Qualifiers: Encounter type: initial encounter Foreign body presence: without foreign body Qualified Code(s): S61.412A - Laceration without foreign body of left hand, initial encounter Condition: Stable Disposition: HOME, SELF-CARE Additional Instructions: Despite a large laceration no evidence of foreign body, no evidence of ligament or tendon injury. Take ibuprofen for pain, take the given pain medication tonight if needed especially to help you sleep. Keep clean, clean with soap and water, apply topical antibiotic ointment. Avoid soaking. Sutures should come out in 10-14 days. Take antibiotic as directed. Return immediately for any signs of infection including redness, discolored drainage, fever, or any other concerning symptoms. Prescriptions: Amox Tr/Potassium Clavulanate [Augmentin 875-125 Tablet] 1 tab PO BID 7 Days tablet
[2016-12-26] MEDS ORDERED: HYDROCODONE/ACETAMINOPHEN 5-325 MG 6 TAB/DSPK PO PRN (22:16)
[2016-12-26] MEDS ORDERED: AMOXICILLIN TR/POT CLAVULANATE 500-125 MG TAB PO ONE (22:16)
[2016-12-26] MEDS ORDERED: AMOXICILLIN TRIHYDRATE 500 MG CAPSULE PO ONE (22:16)
[2016-12-26 22:46] VITALS: BP 138/84
== END 2016-12-26 22:45 | disposition home or self-care (01) ==
LOC: ER 16:44
DX: S61.412A Laceration without foreign body of left hand, initial encounter (principal); S61.512A Laceration without foreign body of left wrist, initial encounter; S61.012A Laceration without foreign body of left thumb without damage to nail, initial encounter; W29.8XXA Contact with other powered hand tools and household machinery, initial encounter; Y99.0 Civilian activity done for income or pay; J44.9 Chronic obstructive pulmonary disease, unspecified; Z86.14 Personal history of Methicillin resistant Staphylococcus aureus infection
CPT/HCPCS: 99283; 90715; 12034; J3490 ×3

== ENCOUNTER → 2017-05-20 | Outpatient (CLI) | payer MEDICAID ==
--- NOTE | 2017-05-20 17:41 | XCELERA REPORT ---
[address] [address] Transthoracic Echocardiogram Report Name: WYATT ELIAS Age: 41 yrs Gender: Male : 1975 Patient Status: Outpatient Patient Location: Study Date: 05/20/2017 10:02 AM Height: 66 in Weight: 133 lb BSA: 1.7 m2 Procedure: A complete two-dimensional transthoracic echocardiogram was performed (2D, M-mode, spectral and color flow Doppler). The study was technically difficult with many images being suboptimal in quality. Reason For Study: PULMONARY HYPERTENSION Ordering Physician: FAWAD CHUNG Performed By: Carline Servin Interpretation Summary The left ventricular ejection fraction is within normal limits. There is normal left ventricular wall thickness. Doppler measurements suggest impaired left ventricular relaxation, which is associated with grade I/IV or mild diastolic dysfunction The left ventricle is grossly normal size. Wall motion cannot be accurately commented on, but no definite regional wall motion abnormalities noted. Borderline right ventricular enlargement. The right ventricular systolic function is normal. Borderline right atrial enlargement. The left atrial size is normal. There is no mitral valve stenosis. There is a trace amount of mitral regurgitation There is no aortic valve stenosis No aortic regurgitation is present. There is a trace to mild amount of tricuspid regurgitation There is mild pulmonary hypertension by echo Right ventricular systolic pressure is estimated to be elevated at 30- 40mmHg. The aortic root is not well visualized but is probably normal size. The inferior vena cava appeared normal and decreased > 50% with respiration (RAP 5-10 mmHg) There is no pericardial effusion. MMode/2D Measurements & Calculations RVDd: 2.8 cm LVIDd: 4.1 cm FS: 43.4 % Ao root diam: 2.7 cm IVSd: 0.76 cm LVIDs: 2.3 cm EDV(Teich): 72.4 ml LVPWd: 0.82 cm ESV(Teich): 18.1 ml Ao root area: 5.5 cm2 EF(Teich): 75.1 % LA dimension: 3.3 cm Doppler Measurements & Calculations MV E max darrell: MV P1/2t max darrell: Ao V2 max: LV V1 max P.5 cm/sec 54.5 cm/sec 109.2 cm/sec 3.7 mmHg MV A max darrell: MV P1/2t: 95.5 msec Ao max PG: LV V1 max: 58.3 cm/sec 4.8 mmHg 95.6 cm/sec MV E/A: 0.92 MVA(P1/2t): 2.3 cm2 MV dec slope: 167.2 cm/sec2 MV dec time: 0.34 sec PA V2 max: TR max darrell: 80.5 cm/sec 271.5 cm/sec PA max PG: TR max P.5 mmHg 2.6 mmHg Left Ventricle The left ventricle is grossly normal size. There is normal left ventricular wall thickness. The left ventricular ejection fraction is within normal limits. Doppler measurements suggest impaired left ventricular relaxation, which is associated with grade I/IV or mild diastolic dysfunction. Wall motion cannot be accurately commented on, but no definite regional wall motion abnormalities noted. Right Ventricle Borderline right ventricular enlargement. There is normal right ventricular wall thickness. The right ventricular systolic function is normal. Atria Borderline right atrial enlargement. The left atrial size is normal. Interarterial septum not well visualized and not well dopplered. Cannot comment on ASD/PFO presence. Mitral Valve The mitral valve is grossly normal. There is no mitral valve stenosis. There is a trace amount of mitral regurgitation. Aortic Valve The aortic valve is grossly normal. There is no aortic valve stenosis. No aortic regurgitation is present. Tricuspid Valve The tricuspid valve is not well visualized, but is grossly normal. There is no tricuspid stenosis. There is a trace to mild amount of tricuspid regurgitation. There is mild pulmonary hypertension by echo. Right ventricular systolic pressure is estimated to be elevated at 30-40mmHg. Pulmonic Valve The pulmonic valve is not well visualized. Great Vessels The aortic root is not well visualized but is probably normal size. The inferior vena cava appeared normal and decreased > 50% with respiration (RAP 5-10 mmHg). Effusions There is no pericardial effusion. : FAWAD CHUNG > Yovani Hudson
== END ==
LOC: SP 09:46
PROVIDERS: ATTEND Internal Medicine Pulmonary Disease
DX: I27.21 Secondary pulmonary arterial hypertension (principal)
CPT/HCPCS: 93306

== ENCOUNTER → 2017-11-27 | Outpatient (CLI) | payer MEDICAID ==
--- NOTE | 2017-11-27 10:52 | RADIOLOGY REPORT (SQ) ---
EXAM DESCRIPTION: CT CHEST WITHOUT COMPLETED DATE/TIME: 11/27/2017 9:45 am REASON FOR STUDY: PULMONARY FIBROSIS, UNSPECIFIED J84.10 PULMONARY FIBROSIS, UNSPECIFIED COMPARISON: August 2016 TECHNIQUE: CT scan performed of the chest without intravenous contrast. Images reviewed with lung, soft tissue and bone windows. Reconstructed coronal and sagittal MPR images reviewed. All images st ored on PACS. All CT scanners at this facility use dose modulation, iterative reconstruction, and/or weight based d osing when appropriate to reduce radiation dose to as low as reasonably achievable (ALARA). [facility]: Dose Right [facility]: CareDose [facility]: Dose Right [facility]: Teradose 4D [facility]: EasyLink RADIATION DOSE: CT Rad equipment meets quality standard of care and radiation dose reduction techniq ues were employed. CTDIvol: 3.6 mGy. DLP: 142 mGy-cm. mGy. LIMITATIONS: No technical limitations. FINDINGS: LUNGS AND PLEURA: The previously described chronic scarring and pulmonary fibrosis and ass ociated bullous changes appears stable. No acute consolidations or pleural effusions are identified. No pneumothorax is seen. HILAR AND MEDIASTINAL STRUCTURES: No identified masses or abnormal nodes. No obvious aneurysm. HEART AND VASCULAR STRUCTURES: No aneurysm. No pericardial effusion. UPPER ABDOMEN: No significant findings. Limited exam. THYROID AND OTHER SOFT TISSUES: No masses. No adenopathy. BONES: No significant finding. HARDWARE: None in the chest. OTHER: No other significant findings. IMPRESSION: Stable appearing chronic scarring and pulmonary fibrosis with associated bullous changes . No acute changes. Other findings as noted above TECHNICAL DOCUMENTATION: JOB ID: [id number] Quality ID # [id number]: Final reports with documentation of one or more dose reduction techniques (e.g., Au tomated exposure control, adjustment of the mA and/or kV according to patient size, use of iterative reconstruction technique) 2010 [employer]- All Rights Reserved Reading location - IP/workstation name: [email or web address]
== END ==
LOC: RAD 09:21
PROVIDERS: ATTEND Physician Assistant
DX: J84.10 Pulmonary fibrosis, unspecified (principal)
CPT/HCPCS: 71250

== ENCOUNTER 2018-08-24 11:13 | Inpatient (IN) | payer SELFPAY ==
[2018-08-24] MEDS ORDERED: IPRATROPIUM/ALBUTEROL 0.5-2.5 MG/3 ML AMPUL NEB ONE (11:35)
[2018-08-24] MEDS ORDERED: METHYLPREDNISOLONE INJ 125 MG/2 ML SDV IV ONE (11:35)
--- NOTE | 2018-08-24 11:58 | RADIOLOGY REPORT (SQ) ---
EXAM DESCRIPTION: CHEST SINGLE VIEW COMPLETED DATE/TIME: 08/24/2018 11:31 am REASON FOR STUDY: bed 17 db COMPARISON: 08/26/2016 EXAM PARAMETERS: NUMBER OF VIEWS: One view. TECHNIQUE: Single frontal radiographic view of the chest acquired. RADIATION DOSE: NA LIMITATIONS: None. FINDINGS: LUNGS AND PLEURA: Severe emphysematous changes. Marked chronic scarring. Marked hyperinf lation. Appearance is improved over the previous study. MEDIASTINUM AND HILAR STRUCTURES: No masses. Contour normal. HEART AND VASCULAR STRUCTURES: Heart normal in size. Normal vasculature. BONES: No acute findings. HARDWARE: None in the chest. OTHER: No other significant finding. IMPRESSION: Severe chronic changes of emphysema and COPD. Chronic scarring. No acute opacities. TECHNICAL DOCUMENTATION: JOB ID: [id number] [employer]- All Rights Reserved Reading location - IP/workstation name: [email or web address]
[2018-08-24 12:01] LABS: HEMOGLOBIN 15.3 g/dL (13.5-17.0); MEAN CORPUSCULAR HEMOGLOBIN 30.8 pg (27.0-33.4); MEAN CORPUSCULAR VOLUME 91 fl (80-97); PLATELET COUNT 400 10^3/uL (150-450); RED BLOOD COUNT 4.97 10^6/uL (4.35-5.55); RED CELL DISTRIBUTION WIDTH 13.9 % (11.5-14.0); VENOUS BLOOD BASE EXCESS 4.6 mmol/L; VENOUS BLOOD HCO3 31.1 mmol/L (20-32); VENOUS BLOOD PCO2 52.9 mmHg (35-63); VENOUS BLOOD PH 7.39 (7.30-7.42); WHITE BLOOD COUNT 22.8 10^3/uL (4.0-10.5)
[2018-08-24 12:04] LABS: INTERNATIONAL RATION (INR) 0.97; PROTHROMBIN TIME 13.4 SEC (11.4-15.4)
[2018-08-24 12:14] LABS: ALANINE AMINOTRANSFERASE 39 U/L (21-72); ALBUMIN 3.7 g/dL (3.5-5.0); ALKALINE PHOSPHATASE 89 U/L (38-126); ANION GAP 8 (5-19); ASPARTATE AMINO TRANSFERASE 31 U/L (17-59); BILIRUBIN,DIRECT 0.5 mg/dL (0.0-0.4); BILIRUBIN,TOTAL 1.3 mg/dL (0.2-1.3); BLOOD UREA NITROGEN 18 mg/dL (7-20); CALCIUM 10.1 mg/dL (8.4-10.2); CARBON DIOXIDE 30 mmol/L (22-30); CHLORIDE 98 mmol/L (98-107); CREATINE KINASE 50 U/L (55-170); GLUCOSE 156 mg/dL (75-110); POTASSIUM 4.7 mmol/L (3.6-5.0); SODIUM 135.9 mmol/L (137-145); TOTAL PROTEIN 7.5 g/dL (6.3-8.2)
[2018-08-24 12:18] LABS: ABSOLUTE LYMPHOCYTES# (MANUAL) 2.3 10^3/uL (0.5-4.7); ABSOLUTE MONOCYTES # (MANUAL) 1.1 10^3/uL (0.1-1.4); ABSOLUTE NEUTROPHILS# (MANUAL) 18.9 10^3/uL (1.7-8.2); BASOPHILS % (MANUAL) 0 % (0-2); EOSINOPHILS % (MANUAL) 2 % (0-6); LYMPHOCYTES % (MANUAL) 10 % (13-45); MONOCYTES % (MANUAL) 5 % (3-13); SEGMENTED NEUTROPHILS % (MAN) 83 % (42-78); TOTAL CELLS COUNTED 100; TOXIC GRANULATION 1+
[2018-08-24 12:19] LABS: PLATELET COMMENT ADEQUATE
[2018-08-24] MEDS ORDERED: LEVOFLOXACIN 750 MG/D5W RTU 750 MG/150 ML RTUPB IV ONE (12:27)
[2018-08-24] MEDS ORDERED: ALBUTEROL SULFATE 0.083% NEB 2.5 MG/3 ML AMPUL NEB ONE (12:27)
[2018-08-24 12:28] LABS: TROPONIN I < 0.012 ng/mL
[2018-08-24] MEDS ORDERED: NORMAL SALINE 1000 ML 1,000 ML IV ONE (13:05)
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
[2018-08-24] MEDS ORDERED: PROMETHAZINE HCL INJ 25 MG/1 ML VIAL IV PRN (14:09)
[2018-08-24] MEDS ORDERED: ACETAMINOPHEN 325 MG TABLET PO PRN (14:09)
[2018-08-24] MEDS ORDERED: OXYCODONE-ACETAMINOPHEN 5-325 MG TABLET PO PRN (14:09)
[2018-08-24] MEDS ORDERED: ONDANSETRON 4 MG TAB.RAPDIS PO PRN (14:09)
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
[2018-08-24 14:58] LABS: APPEARANCE,URINE CLEAR; BILIRUBIN,URINE NEGATIVE (NEGATIVE); COLOR,URINE YELLOW; GLUCOSE, URINE NEGATIVE (NEGATIVE); KETONES,URINE NEGATIVE (NEGATIVE); LEUKOCYTE ESTERASE,URINE NEGATIVE (NEGATIVE); NITRITE,URINE NEGATIVE (NEGATIVE); PROTEIN,URINE NEGATIVE (NEGATIVE); URINE SPECIFIC GRAVITY 1.012; UROBILINOGEN,URINE NEGATIVE mg/dL (<2.0)
[2018-08-24 15:08] LABS: URINE AMPHETAMINES SCREEN NEGATIVE; URINE BARBITURATES SCREEN NEGATIVE; URINE BENZODIAZEPINES SCREEN NEGATIVE; URINE COCAINE SCREEN NEGATIVE; URINE MARIJUANA (THC) SCREEN NEGATIVE; URINE METHADONE SCREEN UNCONFIRMED POSITIVE; URINE PHENCYCLIDINE SCREEN NEGATIVE
--- NOTE | 2018-08-24 15:39 | RADIOLOGY REPORT (SQ) ---
EXAM DESCRIPTION: CTA CHEST COMPLETED DATE/TIME: 08/24/2018 3:24 pm REASON FOR STUDY: r/o PE COMPARISON: Chest radiograph TECHNIQUE: CT scan of the chest performed using helical scanning technique with dynamic intravenous contrast injection. Images reviewed with lung, soft tissue and bone windows. Reconstructed coronal and sagittal MPR images reviewed. Additional 3 dimensional post-processing performed to develop Maximal Intensity Projection images (AK P). All images stored on PACS. All CT scanners at this facility use dose modulation, iterative reconstruction, and/or weight based d osing when appropriate to reduce radiation dose to as low as reasonably achievable (ALARA). [facility]: Dose Right [facility]: CareDose [facility]: Dose Right [facility]: Teradose 4D [facility]: [employer] CONTRAST TYPE AND DOSE: contrast/concentration: Isovue 350.00 mg/ml; Total Contrast Delivered: 65.0 ml; Total Saline Delivered: 80.0 ml Contrast bolus adequate for pulmonary arteries and aorta. RENAL FUNCTION: GFR > 60. RADIATION DOSE: CT Rad equipment meets quality standard of care and radiation dose reduction techniq ues were employed. CTDIvol: 14.3 - 24.8 mGy. DLP: 600 mGy-cm. . LIMITATIONS: None. FINDINGS: LUNGS AND PLEURA: Severe bullous emphysema. No masses. No discrete opacities. AORTA AND GREAT VESSELS: No aneurysm. No dissection. HEART: No pericardial effusion. No significant coronary artery calcifications. PULMONARY ARTERIES: No emboli visualized in the main pulmonary arteries or the segmental branches. HILAR AND MEDIASTINAL STRUCTURES: No identified masses or abnormal nodes. HARDWARE: None in the chest. UPPER ABDOMEN: No significant findings. Limited exam. THYROID AND OTHER SOFT TISSUES: No masses. No adenopathy. BONES: No acute or significant finding. 3D MIPS: Confirm above findings. OTHER: No other significant finding. IMPRESSION: No pulmonary emboli. Severe bullous emphysema. COMMENT: Quality ID # [id number]: Final reports with documentation of one or more dose reduction techniques (e.g., Automated exposure control, adjustment of the mA and/or kV according to patient size, use of iterative reconstruction technique) TECHNICAL DOCUMENTATION: JOB ID: [id number] [employer]- All Rights Reserved Reading location - IP/workstation name: [email or web address]
[2018-08-24] MEDS: FLUTICASONE/VILANTEROL 100-25 MCG/DOSE IH SCH (17:34)
[2018-08-24] MEDS: IPRATROPIUM/ALBUTEROL 0.5-2.5 MG/3 ML AMPUL NEB SCH (19:58)
--- NOTE | 2018-08-24 20:51 | EKG REPORT ---
SEVERITY:- BORDERLINE ECG - SINUS TACHYCARDIA BORDERLINE T WAVE ABNORMALITIES : Confirmed by: Nata Freitas MD 24-Aug-2018 20:50:29
[2018-08-24] MEDS: FAMOTIDINE 20 MG TABLET PO SCH (21:31)
[2018-08-24] MEDS: HEPARIN SOD (PORCINE) 5,000 UNIT/ML 1 ML SYRINGE SUBCUT SCH (21:33)
[2018-08-24] MEDS ORDERED: (PENDING PHARMACY ID) (Budesonide/Formoterol Fumarate 1 PUFF) IH SCH (22:00)
[2018-08-25] MEDS: IPRATROPIUM/ALBUTEROL 0.5-2.5 MG/3 ML AMPUL NEB SCH ×3 (07:48→20:50)
[2018-08-25] MEDS: HEPARIN SOD (PORCINE) 5,000 UNIT/ML 1 ML SYRINGE SUBCUT SCH ×3 (07:59→21:03)
[2018-08-25 09:00] LABS: HEMATOCRIT 41.7 % (37.9-51.0); HEMOGLOBIN 14.1 g/dL (13.5-17.0); MEAN CORPUSCULAR HEMOGLOBIN 30.3 pg (27.0-33.4); MEAN CORPUSCULAR HGB CONC 33.7 g/dL (32.0-36.0); MEAN CORPUSCULAR VOLUME 90 fl (80-97); PLATELET COUNT 376 10^3/uL (150-450); RED BLOOD COUNT 4.64 10^6/uL (4.35-5.55); RED CELL DISTRIBUTION WIDTH 13.7 % (11.5-14.0); WHITE BLOOD COUNT 27.8 10^3/uL (4.0-10.5)
[2018-08-25] MEDS: DOCUSATE SODIUM 100 MG CAPSULE PO SCH (09:05)
[2018-08-25] MEDS: FAMOTIDINE 20 MG TABLET PO SCH ×2 (09:05→21:02)
[2018-08-25] MEDS: FLUTICASONE/VILANTEROL 100-25 MCG/DOSE IH SCH (09:05)
[2018-08-25] MEDS: LEVOFLOXACIN 500 MG/D5W RTU 500 MG/100 ML RTUPB IV SCH (09:06)
[2018-08-25 09:26] LABS: ALANINE AMINOTRANSFERASE 38 U/L (21-72); ALBUMIN 3.4 g/dL (3.5-5.0); ALKALINE PHOSPHATASE 103 U/L (38-126); ANION GAP 11 (5-19); ASPARTATE AMINO TRANSFERASE 18 U/L (17-59); BILIRUBIN,DIRECT 0.3 mg/dL (0.0-0.4); BILIRUBIN,TOTAL 0.4 mg/dL (0.2-1.3); BLOOD UREA NITROGEN 17 mg/dL (7-20); CALCIUM 9.9 mg/dL (8.4-10.2); CARBON DIOXIDE 25 mmol/L (22-30); CHLORIDE 102 mmol/L (98-107); GLUCOSE 151 mg/dL (75-110); POTASSIUM 4.4 mmol/L (3.6-5.0); SODIUM 138.2 mmol/L (137-145); TOTAL PROTEIN 6.8 g/dL (6.3-8.2)
[2018-08-25 09:42] LABS: ABSOLUTE LYMPHOCYTES# (MANUAL) 1.1 10^3/uL (0.5-4.7); ABSOLUTE MONOCYTES # (MANUAL) 0.8 10^3/uL (0.1-1.4); ABSOLUTE NEUTROPHILS# (MANUAL) 25.9 10^3/uL (1.7-8.2); BASOPHILS % (MANUAL) 0 % (0-2); EOSINOPHILS % (MANUAL) 0 % (0-6); LYMPHOCYTES % (MANUAL) 4 % (13-45); MONOCYTES % (MANUAL) 3 % (3-13); OVALOCYTES 1+; PLATELET COMMENT ADEQUATE; POIKILOCYTOSIS 1+; SEGMENTED NEUTROPHILS % (MAN) 93 % (42-78); TOTAL CELLS COUNTED 100
[2018-08-25] MEDS ORDERED: (PENDING PHARMACY ID) (Fluticasone/Salmeterol 1 PUFF) IH SCH (10:00)
[2018-08-25] MEDS: TIOTROPIUM BROMIDE DPI 5 CAP/KIT (18 MCG/CAP) IH SCH (10:07)
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
[2018-08-25] MEDS: NICOTINE 21 MG/24 HR PATCH.TD24 TD SCH (14:20)
[2018-08-25] MEDS: PREDNISONE 20 MG TABLET PO SCH ×2 (14:20→17:16)
[2018-08-26] MEDS: HEPARIN SOD (PORCINE) 5,000 UNIT/ML 1 ML SYRINGE SUBCUT SCH ×3 (05:44→21:16)
[2018-08-26 06:51] LABS: HEMATOCRIT 43.7 % (37.9-51.0); HEMOGLOBIN 14.8 g/dL (13.5-17.0); MEAN CORPUSCULAR HEMOGLOBIN 30.3 pg (27.0-33.4); MEAN CORPUSCULAR HGB CONC 33.8 g/dL (32.0-36.0); MEAN CORPUSCULAR VOLUME 90 fl (80-97); PLATELET COUNT 349 10^3/uL (150-450); RED BLOOD COUNT 4.88 10^6/uL (4.35-5.55); RED CELL DISTRIBUTION WIDTH 13.8 % (11.5-14.0); WHITE BLOOD COUNT 20.2 10^3/uL (4.0-10.5)
[2018-08-26 07:09] LABS: ANION GAP 9 (5-19); BLOOD UREA NITROGEN 23 mg/dL (7-20); CARBON DIOXIDE 28 mmol/L (22-30); CHLORIDE 103 mmol/L (98-107); GLUCOSE 110 mg/dL (75-110); POTASSIUM 5.3 mmol/L (3.6-5.0); SODIUM 139.7 mmol/L (137-145)
[2018-08-26] MEDS: IPRATROPIUM/ALBUTEROL 0.5-2.5 MG/3 ML AMPUL NEB SCH ×3 (07:45→21:44)
[2018-08-26 08:15] LABS: ABSOLUTE LYMPHOCYTES# (MANUAL) 2.2 10^3/uL (0.5-4.7); ABSOLUTE MONOCYTES # (MANUAL) 0.6 10^3/uL (0.1-1.4); ABSOLUTE NEUTROPHILS# (MANUAL) 17.4 10^3/uL (1.7-8.2); BASOPHILS % (MANUAL) 0 % (0-2); EOSINOPHILS % (MANUAL) 0 % (0-6); LYMPHOCYTES % (MANUAL) 10 % (13-45); MONOCYTES % (MANUAL) 3 % (3-13); SEGMENTED NEUTROPHILS % (MAN) 86 % (42-78); TOTAL CELLS COUNTED 100
[2018-08-26 08:18] LABS: ANISOCYTOSIS SLIGHT
[2018-08-26 08:20] LABS: OVALOCYTES SLIGHT; PLATELET COMMENT ADEQUATE; POIKILOCYTOSIS SLIGHT
[2018-08-26] MEDS: LEVOFLOXACIN 500 MG/D5W RTU 500 MG/100 ML RTUPB IV SCH (09:31)
[2018-08-26] MEDS: DOCUSATE SODIUM 100 MG CAPSULE PO SCH (09:31)
[2018-08-26] MEDS: FAMOTIDINE 20 MG TABLET PO SCH ×2 (09:31→21:16)
[2018-08-26] MEDS: PREDNISONE 20 MG TABLET PO SCH ×2 (09:31→17:05)
[2018-08-26] MEDS: FLUTICASONE/VILANTEROL 100-25 MCG/DOSE IH SCH (09:32)
[2018-08-26] MEDS: TIOTROPIUM BROMIDE DPI 5 CAP/KIT (18 MCG/CAP) IH SCH (09:33)
[2018-08-26] MEDS: NICOTINE 21 MG/24 HR PATCH.TD24 TD SCH (09:34)
--- NOTE | 2018-08-26 13:55 | PDOC PROGRESS REPORT ---
Subjective Progress Note for:: 08/26/18 Subjective:: No adverse events overnight. No new complaints. He still gets short of breath when he gets up to move around some of the room, but most time he is able to stay on room air. No fevers. Reason For Visit: EXACERBATION COPD Physical Exam Vital Signs: Temp Pulse Resp BP Pulse Ox 97.4 F 104 H 17 129/98 H 100 08/26/18 12:00 08/26/18 12:00 08/26/18 12:00 08/26/18 12:00 08/26/18 12:00 Intake & Output 08/25/18 08/26/18 08/27/18 06:59 06:59 06:59 Intake Total 2630 924 100 Balance 2630 924 100 Weight 57.5 kg 57.2 kg General appearance: PRESENT: no acute distress, cooperative, disheveled Respiratory exam: PRESENT: prolonged expiratory phas, rhonchi, symmetrical, wheezes. ABSENT: accessory muscle use, crackles, retraction, tachypnea, unlabored Cardiovascular exam: PRESENT: RRR, +S1, +S2 Pulses: PRESENT: normal carotid pulses Vascular exam: PRESENT: normal capillary refill GI/Abdominal exam: PRESENT: normal bowel sounds, soft. ABSENT: distended, guarding, rebound, tenderness Extremities exam: ABSENT: clubbing, pedal edema Musculoskeletal exam: PRESENT: normal inspection. ABSENT: deformity Neurological exam: PRESENT: alert, awake, oriented to person, oriented to place, oriented to time, oriented to situation Psychiatric exam: PRESENT: appropriate affect, normal mood Skin exam: PRESENT: dry, warm Results Laboratory Results: 08/26/18 06:09 08/26/18 06:09 08/26/18 08/26/18 06:09 06:09 WBC 20.2 H RBC 4.88 Hgb 14.8 Hct 43.7 MCV 90 MCH 30.3 MCHC 33.8 RDW 13.8 Plt Count 349 Seg Neutrophils % Not Reportable Lymphocytes % Not Reportable Monocytes % Not Reportable Eosinophils % Not Reportable Basophils % Not Reportable Absolute Neutrophils Not Reportable Absolute Lymphocytes Not Reportable Absolute Monocytes Not Reportable Absolute Eosinophils Not Reportable Absolute Basophils Not Reportable Sodium 139.7 Potassium 5.3 H Chloride 103 Carbon Dioxide 28 Anion Gap 9 BUN 23 H Creatinine 0.82 Est GFR ( Amer) > 60 Est GFR (Non-Af Amer) > 60 Glucose 110 Calcium 10.0 08/24/18 14:29 Clean Catch Midstream Urine Culture - Final NO GROWTH 2 DAYS 08/24/18 08/24/18 08/24/18 11:40 11:40 11:40 Creatine Kinase 50 L CK-MB (CK-2) 1.00 Troponin I < 0.012 NT-Pro-B Natriuret Pep 58 Impressions: Chest/Abdomen CTA 08/24/18 00:00 IMPRESSION: No pulmonary emboli. Severe bullous emphysema. Chest X-Ray 08/24/18 11:16 IMPRESSION: Severe chronic changes of emphysema and COPD. Chronic scarring. No acute opacities. Assessment and Plan - Diagnosis (1) COPD exacerbation Is this a current diagnosis for this admission?: Yes Plan: We will continue his current regimen of steroids and bronchodilators, still has very coarse breath sounds with a lot of wheezing and prolonged expiratory phase. We will continue to attempt to ambulate in order to increase his ambulatory capacity. (2) Sarcoidosis Is this a current diagnosis for this admission?: No Plan: His steroids are treating this as well. 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 He said that he used to see Dr. Hunter's partner who then left, and was supposed to follow-up with Dr. Hunter but his appointment got canceled and he is not yet been able to get back and to a rescheduled appointment. - Time Time Spent with patient: 25-34 minutes
[2018-08-27] MEDS: HEPARIN SOD (PORCINE) 5,000 UNIT/ML 1 ML SYRINGE SUBCUT SCH (06:04)
[2018-08-27 07:33] LABS: HEMATOCRIT 43.6 % (37.9-51.0); HEMOGLOBIN 14.8 g/dL (13.5-17.0); MEAN CORPUSCULAR HEMOGLOBIN 30.3 pg (27.0-33.4); MEAN CORPUSCULAR HGB CONC 33.9 g/dL (32.0-36.0); MEAN CORPUSCULAR VOLUME 90 fl (80-97); PLATELET COUNT 355 10^3/uL (150-450); RED BLOOD COUNT 4.88 10^6/uL (4.35-5.55); RED CELL DISTRIBUTION WIDTH 13.7 % (11.5-14.0); WHITE BLOOD COUNT 20.6 10^3/uL (4.0-10.5)
[2018-08-27 07:51] LABS: ANION GAP 9 (5-19); BLOOD UREA NITROGEN 23 mg/dL (7-20); CALCIUM 9.5 mg/dL (8.4-10.2); CARBON DIOXIDE 25 mmol/L (22-30); CHLORIDE 105 mmol/L (98-107); GLUCOSE 89 mg/dL (75-110); POTASSIUM 4.5 mmol/L (3.6-5.0); SODIUM 138.6 mmol/L (137-145)
[2018-08-27] MEDS: IPRATROPIUM/ALBUTEROL 0.5-2.5 MG/3 ML AMPUL NEB SCH (08:01)
[2018-08-27 08:30] LABS: ABSOLUTE LYMPHOCYTES# (MANUAL) 2.7 10^3/uL (0.5-4.7); ABSOLUTE MONOCYTES # (MANUAL) 1.2 10^3/uL (0.1-1.4); ABSOLUTE NEUTROPHILS# (MANUAL) 16.7 10^3/uL (1.7-8.2); BASOPHILS % (MANUAL) 0 % (0-2); EOSINOPHILS % (MANUAL) 0 % (0-6); LYMPHOCYTES % (MANUAL) 13 % (13-45); MONOCYTES % (MANUAL) 6 % (3-13); PLATELET CLUMPS PRESENT; PLATELET COMMENT ADEQUATE; SEGMENTED NEUTROPHILS % (MAN) 81 % (42-78); TOTAL CELLS COUNTED 100
[2018-08-27] MEDS: NICOTINE 21 MG/24 HR PATCH.TD24 TD SCH (09:42)
[2018-08-27] MEDS: PREDNISONE 20 MG TABLET PO SCH (09:44)
[2018-08-27] MEDS: DOCUSATE SODIUM 100 MG CAPSULE PO SCH (09:44)
[2018-08-27] MEDS: LEVOFLOXACIN 500 MG/D5W RTU 500 MG/100 ML RTUPB IV SCH (09:44)
[2018-08-27] MEDS: FAMOTIDINE 20 MG TABLET PO SCH (09:44)
[2018-08-27] MEDS: FLUTICASONE/VILANTEROL 100-25 MCG/DOSE IH SCH (09:44)
[2018-08-27] MEDS: TIOTROPIUM BROMIDE DPI 5 CAP/KIT (18 MCG/CAP) IH SCH (09:45)
[2018-08-27 12:25] VITALS: BP 118/78
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
== END 2018-08-27 13:05 | disposition home or self-care (01) | DRG 192 ==
LOC: ER 11:13 → INTOOBSV 13:44 → EH 13:44 → 4S 17:05 → OBSVTOIN 08-25 16:34
PROVIDERS: ADMIT Internal Medicine; ATTEND Internal Medicine
DX: J43.9 Emphysema, unspecified (principal); D72.829 Elevated white blood cell count, unspecified; D86.9 Sarcoidosis, unspecified; J84.10 Pulmonary fibrosis, unspecified; F17.200 Nicotine dependence, unspecified, uncomplicated; R00.0 Tachycardia, unspecified; Z99.81 Dependence on supplemental oxygen; Z86.718 Personal history of other venous thrombosis and embolism; Z86.14 Personal history of Methicillin resistant Staphylococcus aureus infection; Z79.52 Long term (current) use of systemic steroids
CPT/HCPCS: 36415; 71045; 71275; 80048; 80053; 80307; 81001; 82550; 82553; 82803; 82962; 83036; 83605; 83735; 83880; 84484; 85025; 85610; 87040; 87070; 87077; 87086; 87186; 87205; 93005; 93010; 94640; 96365; 96375; 99291; G0378; J1644; J1956; J2930; J3490; J7030; J7512; J7620

== ENCOUNTER → 2019-05-01 | Outpatient (CLI) | payer MEDICAID ==
--- NOTE | 2019-05-01 11:05 | RADIOLOGY REPORT (SQ) ---
EXAM DESCRIPTION: CT CHEST WITHOUT COMPLETED DATE/TIME: 05/01/2019 9:27 am REASON FOR STUDY: J84.10 PULMONARY FIBROSIS, UNSPECIFIED J84.10 PULMONARY FIBROSIS, UNSPECIFIED COMPARISON: None. TECHNIQUE: CT scan performed of the chest without intravenous contrast. Images reviewed with lung, soft tissue and bone windows. Reconstructed coronal and sagittal MPR images reviewed. All images st ored on PACS. All CT scanners at this facility use dose modulation, iterative reconstruction, and/or weight based d osing when appropriate to reduce radiation dose to as low as reasonably achievable (ALARA). [facility]: Dose Right [facility]: CareDose [facility]: Dose Right [facility]: Teradose 4D [facility]: [employer] RADIATION DOSE: CT Rad equipment meets quality standard of care and radiation dose reduction techniq ues were employed. CTDIvol: 3.8 mGy. DLP: 153 mGy-cm. mGy. LIMITATIONS: No technical limitations. FINDINGS: LUNGS AND PLEURA: Multiple prominent emphysematous bullae are present. The most prominent is in the posterior inferior aspect of the right upper lobe and in the superior aspect of the right lower lobe. There is fairly dense opacification around this large bulla that is new. Chronic fibrot ic changes seen in the left upper lobe posteriorly and inferiorly and in the lingula. HILAR AND MEDIASTINAL STRUCTURES: No identified masses or abnormal nodes. No obvious aneurysm. HEART AND VASCULAR STRUCTURES: No aneurysm. No pericardial effusion. UPPER ABDOMEN: No significant findings. Limited exam. THYROID AND OTHER SOFT TISSUES: No masses. No adenopathy. BONES: No significant finding. HARDWARE: None in the chest. OTHER: No other significant findings. IMPRESSION: Bullous emphysema with associated pulmonary fibrosis. There is increased opacification on the right. This may represent consolidation. Cannot entirely rule rule out neoplasm although the re is no definable center of mass. Correlate for acute infection/inflammation. Consider PET-CT. TECHNICAL DOCUMENTATION: JOB ID: [id number] Quality ID # [id number]: Final reports with documentation of one or more dose reduction techniques (e.g., Au tomated exposure control, adjustment of the mA and/or kV according to patient size, use of iterative reconstruction technique) 2010 [employer] All Rights Reserved Reading location - IP/workstation name: [email or web address]
== END ==
LOC: RAD 09:13
PROVIDERS: ATTEND Registered Nurse
DX: J84.10 Pulmonary fibrosis, unspecified (principal)
CPT/HCPCS: 71250

== ENCOUNTER 2019-05-11 05:52 | Inpatient (IN) | payer MEDICAID ==
[2019-05-11] MEDS ORDERED: IPRATROPIUM/ALBUTEROL 0.5-2.5 MG/3 ML AMPUL NEB ONE (06:08)
[2019-05-11] MEDS ORDERED: METHYLPREDNISOLONE INJ 125 MG/2 ML SDV IV ONE (06:08)
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
[2019-05-11 06:37] LABS: A TYPE INFLUENZA AG NEGATIVE (NEGATIVE); B INFLUENZA AG NEGATIVE (NEGATIVE)
[2019-05-11 06:38] LABS: HEMATOCRIT 42.9 % (37.9-51.0); HEMOGLOBIN 14.1 g/dL (13.5-17.0); MEAN CORPUSCULAR HEMOGLOBIN 29.3 pg (27.0-33.4); MEAN CORPUSCULAR HGB CONC 32.8 g/dL (32.0-36.0); MEAN CORPUSCULAR VOLUME 89 fl (80-97); PLATELET COUNT 492 10^3/uL (150-450); RED CELL DISTRIBUTION WIDTH 14.4 % (11.5-14.0); WHITE BLOOD COUNT 24.2 10^3/uL (4.0-10.5)
[2019-05-11 06:43] LABS: ANION GAP 8 (5-19); BLOOD UREA NITROGEN 8 mg/dL (7-20); CALCIUM 9.4 mg/dL (8.4-10.2); CARBON DIOXIDE 31 mmol/L (22-30); CHLORIDE 101 mmol/L (98-107); GLUCOSE 132 mg/dL (75-110)
--- NOTE | 2019-05-11 06:45 | EKG REPORT ---
SEVERITY:- ABNORMAL ECG - SINUS TACHYCARDIA RA ENLARGEMENT PROBABLE INFERIOR INFARCT, AGE INDETERMINATE LATERAL LEADS ARE ALSO INVOLVED : Confirmed by: Gold Siu MD 11-May-2019 06:44:30
[2019-05-11] MEDS ORDERED: AZITHROMYCIN INJ 500 MG VIAL IV ONE (07:07)
[2019-05-11 07:13] LABS: ABSOLUTE LYMPHOCYTES# (MANUAL) 0.7 10^3/uL (0.5-4.7); ABSOLUTE MONOCYTES # (MANUAL) 1.7 10^3/uL (0.1-1.4); BASOPHILS % (MANUAL) 0 % (0-2); EOSINOPHILS % (MANUAL) 0 % (0-6); LYMPHOCYTES % (MANUAL) 3 % (13-45); MONOCYTES % (MANUAL) 7 % (3-13); SEGMENTED NEUTROPHILS % (MAN) 90 % (42-78); TOTAL CELLS COUNTED 100
[2019-05-11 07:17] LABS: ANISOCYTOSIS SLIGHT; OVALOCYTES SLIGHT; POIKILOCYTOSIS SLIGHT; TOXIC GRANULATION SLIGHT
[2019-05-11 07:18] LABS: PLATELET COMMENT ADEQUATE
--- NOTE | 2019-05-11 07:25 | RADIOLOGY REPORT (SQ) ---
EXAM DESCRIPTION: XR CHEST 1 VIEW COMPLETED DATE/TME: 05/11/2019 06:07 CLINICAL HISTORY: 43 years Male, SOB IPF COMPARISON: 08/24/18. CT, 05/01/19. NUMBER OF VIEWS/TECHNIQUE: 1/AP FINDINGS: Small obscuration-effusion of the right costophrenic angle. Mild mixed interstitial and airspace opacity of bilateral midlung page. Increased lung volume, normal cardiac silhouette, and intact bony thorax. IMPRESSION: Mild fibrosis and emphysematous hyperinflation pattern. Stable.
[2019-05-11] MEDS ORDERED: CEFTRIAXONE 1 GM/D5W RTU 1 GM/50 ML RTUPB IV ONE (08:00)
[2019-05-11] MEDS ORDERED: ACETAMINOPHEN 325 MG TABLET PO PRN (08:29)
[2019-05-11] MEDS ORDERED: ALBUTEROL SULFATE 0.083% NEB 2.5 MG/3 ML AMPUL NEB PRN (08:29)
[2019-05-11] MEDS ORDERED: KETOROLAC TROMETHAMINE INJ/PF 30 MG/1 ML SDV IV PRN (08:32)
--- NOTE | 2019-05-11 08:40 | PDOC H&P ---
History of Present Illness Admission Date/PCP: 05/11/19 07:36 JUAN CARLOS KILLIAN Patient complains of: Shortness of breath History of Present Illness: WYATT ELIAS is a 43 year old male with a past medical history of pulmonary fibrosis and sarcoidosis beginning initial evaluation for lung transplant [facility] who presented to the emergency department today with complaint of sudden onset of shortness of breath, nonresponsive to home nebulizer treatments, preceded by 2 days of progressively worsening dyspnea with activity, productive cough, fatigue, and low-grade fevers. Evaluation in the emergency department revealed fever of 100.5, tachycardia, tachypnea, hypoxia on room air, leukocytosis, normal chemistry and negative influenza screening. Chest x-ray demonstrates pulmonary fibrosis and emphysema; no acute findings. EKG shows sinus tachycardia. He is provided BiPAP support, nebulizer treatments and Solu-Medrol. He is empirically placed on IV Rocephin and azithromycin. He is referred to the hospitalist service for admission and management of acute respiratory failure with hypoxia secondary to community-acquired pneumonia with underlying lung disease. Past Medical History Cardiac Medical History: Reports: DVT Denies: Myocardial Infarction, Hyperlipidema, Hypertension Pulmonary Medical History: Reports: Bronchitis, Pneumonia, Other - Pulmonary fibrosis, sarcoidosis; followed by Dr. Hunter Denies: Asthma Neurological Medical History: Denies: Ischemic CVA, Seizures Endocrine Medical History: Reports: None Renal/ Medical History: Reports: None Malignancy Medical History: Reports: None GI Medical History: Denies: Cirrhosis, Gastroesophageal Reflux Disease, Hepatitis Musculoskeltal Medical History: Reports: Arthritis Psychiatric Medical History: Denies: Depression, Tobacco Dependency Hematology: Reports: None Infectious Medical History: Reports: Methicillin-Resistant Staph Aureus Denies: Clostridium Difficile Past Surgical History Past Surgical History: Reports: Vascular Surgery - left leg artery repaired from trauma Social History Information Source: Patient Lives with: Family Smoking Status: Former Smoker Frequency of Alcohol Use: Social - 2 beers a day Hx Recreational Drug Use: No Drugs: None Hx Prescription Drug Abuse: No - Advance Directive Resuscitation Status: Full Code Family History Family History: None Parental Family History Reviewed: Yes Children Family History Reviewed: Yes Sibling(s) Family History Reviewed.: Yes Medication/Allergy Home Medications: Fluticasone/Salmeterol [Advair 250-50 Diskus 14 Dose/Diskus] 1 puff IH Q12 08/28/16 Tiotropium [place] [Spiriva Handihaler 5 Cap/Kit (18 Mcg/Cap)] 1 cap IH DAILY 08/24/18 Ipratropium/Albuterol Sulfate [Duoneb 3 ml Ampul] 3 ml [facility] [id number] vial.neb 08/27/18 Prednisone [Deltasone 20 mg Tablet] 20 mg PO BID 5 Days #10 tablet 08/27/18 Allergies/Adverse Reactions: No Known Allergies Allergy (Verified 12/26/16 17:08) Review of Systems Constitutional: PRESENT: fatigue, fever(s). ABSENT: chills, headache(s), weight gain, weight loss Eyes: ABSENT: visual disturbances Ears: ABSENT: hearing changes Cardiovascular: ABSENT: chest pain, dyspnea on exertion, edema, orthropnea, palpitations Respiratory: PRESENT: cough, dyspnea, sputum. ABSENT: hemoptysis Gastrointestinal: ABSENT: abdominal pain, constipation, diarrhea, hematemesis, hematochezia, nausea, vomiting Genitourinary: ABSENT: dysuria, hematuria Musculoskeletal: ABSENT: joint swelling Integumentary: ABSENT: rash, wounds Neurological: ABSENT: abnormal gait, abnormal speech, confusion, dizziness, focal weakness, syncope Psychiatric: ABSENT: anxiety, depression, homidical ideation, suicidal ideation Endocrine: ABSENT: cold intolerance, heat intolerance, polydipsia, polyuria Hematologic/Lymphatic: ABSENT: easy bleeding, easy bruising Physical Exam Vital Signs: Temp Pulse Resp BP Pulse Ox 100.5 F H 14 162/98 H 98 05/11/19 06:32 05/11/19 06:28 05/11/19 06:01 05/11/19 06:28 General appearance: PRESENT: no acute distress, cooperative, thin, well- developed, well-nourished Head exam: PRESENT: atraumatic, normocephalic Eye exam: PRESENT: conjunctiva pink, EOMI, PERRLA. ABSENT: scleral icterus Ear exam: PRESENT: normal external ear exam Mouth exam: PRESENT: moist, tongue midline Teeth exam: PRESENT: poor dentation Neck exam: ABSENT: carotid bruit, JVD, lymphadenopathy, thyromegaly Respiratory exam: PRESENT: accessory muscle use, decreased breath sounds - Bibasilar, prolonged expiratory phas, rhonchi, symmetrical, tachypnea, wheezes, other - BiPAP support. ABSENT: rales Cardiovascular exam: PRESENT: RRR, +S1, +S2. ABSENT: diastolic murmur, rubs, systolic murmur Pulses: PRESENT: normal dorsalis pedis pul Vascular exam: PRESENT: normal capillary refill GI/Abdominal exam: PRESENT: normal bowel sounds, soft. ABSENT: distended, guarding, mass, organolmegaly, rebound, tenderness Rectal exam: PRESENT: deferred Extremities exam: PRESENT: full ROM. ABSENT: calf tenderness, clubbing, pedal edema Neurological exam: PRESENT: alert, awake, oriented to person, oriented to place, oriented to time, oriented to situation, CN II-XII grossly intact. ABSENT: motor sensory deficit Psychiatric exam: PRESENT: appropriate affect, normal mood. ABSENT: homicidal ideation, suicidal ideation Skin exam: PRESENT: dry, intact, warm. ABSENT: cyanosis, rash Results Laboratory Results: 05/11/19 06:09 05/11/19 06:09 05/11/19 05/11/19 05/11/19 06:09 06:09 06:09 WBC 24.2 H RBC 4.80 Hgb 14.1 Hct 42.9 MCV 89 MCH 29.3 MCHC 32.8 RDW 14.4 H Plt Count 492 H Seg Neutrophils % Not Reportable Sodium 139.8 Potassium 4.0 Chloride 101 Carbon Dioxide 31 H Anion Gap 8 BUN 8 Creatinine 0.66 Est GFR ( Amer) > 60 Glucose 132 H Lactic Acid 1.0 Calcium 9.4 Impressions: Chest X-Ray 05/11/19 06:07 IMPRESSION: Mild fibrosis and emphysematous hyperinflation pattern. Stable. Assessment and Plan - Diagnosis (1) Community acquired pneumonia Qualifiers: Laterality: unspecified laterality Qualified Code(s): J18.9 - Pneumonia, unspecified organism Is this a current diagnosis for this admission?: Yes Plan: The patient is admitted to the medical floor on continuous cardiac telemetry. Blood and sputum cultures pending. He is empirically placed on IV Rocephin and azithromycin community-acquired pneumonia (although chest x-ray is negative; patient is febrile, with elevated WBCs, HPI and clinical exam supporting) Continue supplemental oxygen and BiPAP as needed to maintain oxygen saturations greater than 89%. Schedule and as needed nebulizer treatments. Mucinex twice daily. Pulmonary toilet. (2) Respiratory failure with hypoxia Qualifiers: Chronicity: acute Qualified Code(s): J96.01 - Acute respiratory failure with hypoxia Is this a current diagnosis for this admission?: Yes Plan: Secondary to community-acquired pneumonia in the setting of pulmonary fibrosis and sarcoidosis. Evaluation management as above. Additionally, will provide IV Solu-Medrol. Patient takes prednisone 40 mg daily at baseline (3) Pulmonary fibrosis Is this a current diagnosis for this admission?: Yes Plan: Stress dose steroids. Pulmonary support as above. (4) Sarcoidosis Is this a current diagnosis for this admission?: Yes Plan: Stress dose steroids. Pulmonary support as above. - Time Time Spent with patient: 35 or more minutes Medications reviewed and adjusted accordingly: Yes Anticipated discharge: Home - Inpatient Certification Based on my medical assessment, after consideration of the patient's comorbidities, presenting symptoms, or acuity I expect that the services needed warrant INPATIENT care.: Yes I certify that my determination is in accordance with my understanding of Medicare's requirements for reasonable and necessary INPATIENT services [42 CFR 412.3e].: Yes Medical Necessity: Need Close Monitoring Due to Risk of Patient Decompensation, Need For IV Fluids, Need For Continuous Telemetry Monitoring, Need for Nebulizer Therapy and Monitoring of Response, Need for IV Antibiotics
[2019-05-11] MEDS ORDERED: HYDROCODONE BIT/HOMATROPINE 5-1.5 MG TABLET PO ONE (09:00)
[2019-05-11] MEDS: FAMOTIDINE 20 MG TABLET PO SCH ×2 (09:39→22:31)
[2019-05-11] MEDS: GUAIFENESIN 600 MG TABLET.SA PO SCH ×2 (09:39→22:31)
[2019-05-11] MEDS: CEFTRIAXONE 1 GM/D5W RTU 1 GM/50 ML RTUPB IV SCH (09:39)
[2019-05-11] MEDS: METHYLPREDNISOLONE INJ 40 MG/1 ML SDV IV SCH ×2 (13:42→22:32)
[2019-05-11] MEDS: HEPARIN SOD (PORCINE) 5,000 UNIT/ML 1 ML VIAL SUBCUT SCH ×2 (13:42→22:32)
[2019-05-11] MEDS: GUAIFENESIN SYRP 200 MG/10 ML UDC PO PRN (13:46)
[2019-05-11] MEDS: IPRATROPIUM/ALBUTEROL 0.5-2.5 MG/3 ML AMPUL NEB SCH ×2 (17:05→23:52)
[2019-05-12] MEDS: HEPARIN SOD (PORCINE) 5,000 UNIT/ML 1 ML VIAL SUBCUT SCH ×3 (05:01→21:38)
[2019-05-12] MEDS: METHYLPREDNISOLONE INJ 40 MG/1 ML SDV IV SCH ×3 (05:55→21:38)
[2019-05-12 07:29] LABS: HEMATOCRIT 42.9 % (37.9-51.0); HEMOGLOBIN 14.1 g/dL (13.5-17.0); MEAN CORPUSCULAR HEMOGLOBIN 29.4 pg (27.0-33.4); MEAN CORPUSCULAR HGB CONC 32.9 g/dL (32.0-36.0); MEAN CORPUSCULAR VOLUME 90 fl (80-97); PLATELET COUNT 518 10^3/uL (150-450); RED CELL DISTRIBUTION WIDTH 14.2 % (11.5-14.0); WHITE BLOOD COUNT 24.3 10^3/uL (4.0-10.5)
[2019-05-12 07:48] LABS: ANION GAP 8 (5-19); BLOOD UREA NITROGEN 21 mg/dL (7-20); CARBON DIOXIDE 34 mmol/L (22-30); CHLORIDE 98 mmol/L (98-107); GLUCOSE 130 mg/dL (75-110)
[2019-05-12 08:03] LABS: POTASSIUM 5.2 mmol/L (3.6-5.0)
[2019-05-12] MEDS: IPRATROPIUM/ALBUTEROL 0.5-2.5 MG/3 ML AMPUL NEB SCH ×2 (08:24→16:42)
[2019-05-12] MEDS: FAMOTIDINE 20 MG TABLET PO SCH ×2 (11:45→21:38)
[2019-05-12] MEDS: GUAIFENESIN 600 MG TABLET.SA PO SCH ×2 (11:45→21:38)
[2019-05-12] MEDS: AZITHROMYCIN 500 MG in DEXTROSE 5%-WATER 250 ML IV SCH (11:46)
[2019-05-12] MEDS: CEFTRIAXONE 1 GM/D5W RTU 1 GM/50 ML RTUPB IV SCH (11:46)
--- NOTE | 2019-05-12 20:17 | PDOC PROGRESS REPORT ---
Subjective Progress Note for:: 05/12/19 Subjective:: Patient is a 43-year-old white male who presented for community-acquired pneumonia and sarcoidosis/pulmonary fibrosis flare. Reason For Visit: PNEUMONIA Physical Exam Vital Signs: Temp Pulse Resp BP Pulse Ox 98.0 F 78 19 118/88 H 97 05/12/19 15:07 05/12/19 15:07 05/12/19 15:07 05/12/19 15:07 05/12/19 15:07 Intake & Output 05/11/19 05/12/19 05/13/19 06:59 06:59 06:59 Intake Total 550 790 Output Total 725 Balance -175 790 Weight 59 kg General appearance: PRESENT: no acute distress, well-developed, well-nourished Head exam: PRESENT: atraumatic, normocephalic Respiratory exam: PRESENT: crackles, rales - Velcro rales consistent with pulmonary fibrosis Cardiovascular exam: PRESENT: RRR. ABSENT: diastolic murmur, rubs, systolic murmur GI/Abdominal exam: PRESENT: normal bowel sounds, soft. ABSENT: distended, guarding, mass, organolmegaly, rebound, tenderness Neurological exam: PRESENT: alert, awake, oriented to person, oriented to place, oriented to time, oriented to situation Psychiatric exam: PRESENT: appropriate affect, normal mood Results Laboratory Results: 05/12/19 06:05 05/12/19 06:05 05/12/19 05/12/19 06:05 06:05 WBC 24.3 H RBC 4.80 Hgb 14.1 Hct 42.9 MCV 90 MCH 29.4 MCHC 32.9 RDW 14.2 H Plt Count 518 H Sodium 140.3 Potassium 5.2 H D Chloride 98 Carbon Dioxide 34 H Anion Gap 8 BUN 21 H Creatinine 0.76 Est GFR ( Amer) > 60 Glucose 130 H Calcium 10.0 Impressions: Chest X-Ray 05/11/19 06:07 IMPRESSION: Mild fibrosis and emphysematous hyperinflation pattern. Stable. Assessment and Plan - Diagnosis (1) Community acquired pneumonia Qualifiers: Laterality: unspecified laterality Qualified Code(s): J18.9 - Pneumonia, unspecified organism Is this a current diagnosis for this admission?: Yes Plan: The patient is admitted to the medical floor on continuous cardiac telemetry. Blood and sputum cultures pending. He is empirically placed on IV Rocephin and azithromycin community-acquired pneumonia (although chest x-ray is negative; patient is febrile, with elevated WBCs, HPI and clinical exam supporting) Continue supplemental oxygen and BiPAP as needed to maintain oxygen saturations greater than 89%. Schedule and as needed nebulizer treatments. Mucinex twice daily. Pulmonary toilet. 05/12: Continue submental oxygen, positive pressure as needed. Continue pulmonary support as above. IV antibiotics continue, transition to p.o. when he has significant clinical improvement. (2) Respiratory failure with hypoxia Qualifiers: Chronicity: acute Qualified Code(s): J96.01 - Acute respiratory failure wit h hypoxia Is this a current diagnosis for this admission?: Yes Plan: Secondary to community-acquired pneumonia in the setting of pulmonary fibrosis and sarcoidosis. Evaluation management as above. Additionally, will provide IV Solu-Medrol. Patient takes prednisone 40 mg daily at baseline 05/12: IV steroids continued until sarcoid flare and/or pulmonary fibrosis flare improve significantly (3) Acute respiratory distress Is this a current diagnosis for this admission?: Yes Plan: As above (4) Pulmonary fibrosis Is this a current diagnosis for this admission?: Yes Plan: Stress dose steroids. Pulmonary support as above. 05/12: Continue steroids as above needs close prompt follow-up with pulmonology at [place] (5) Sarcoidosis Is this a current diagnosis for this admission?: Yes Plan: Stress dose steroids. Pulmonary support as above. 05/12: Patient states he may be on the lung transplant list in the near future if his respiratory status continues to deteriorate chronically - Time Time Spent with patient: 15-24 minutes - Inpatient Certification Medical Necessity: Need for IV Antibiotics, Risk of Complication if Not Cared For in Hospital
[2019-05-12] MEDS: NORMAL SALINE 1000 ML 1,000 ML IV PRN (21:38)
[2019-05-12] MEDS: GUAIFENESIN SYRP 200 MG/10 ML UDC PO PRN (21:38)
[2019-05-13] MEDS: IPRATROPIUM/ALBUTEROL 0.5-2.5 MG/3 ML AMPUL NEB SCH ×3 (00:10→16:07)
[2019-05-13] MEDS: METHYLPREDNISOLONE INJ 40 MG/1 ML SDV IV SCH ×2 (06:45→14:17)
[2019-05-13] MEDS: HEPARIN SOD (PORCINE) 5,000 UNIT/ML 1 ML VIAL SUBCUT SCH ×2 (06:45→14:18)
[2019-05-13] MEDS: NORMAL SALINE 1000 ML 1,000 ML IV PRN (06:47)
[2019-05-13] MEDS: FAMOTIDINE 20 MG TABLET PO SCH (10:49)
[2019-05-13] MEDS: CEFTRIAXONE 1 GM/D5W RTU 1 GM/50 ML RTUPB IV SCH (10:49)
[2019-05-13] MEDS: GUAIFENESIN 600 MG TABLET.SA PO SCH (10:49)
[2019-05-13] MEDS: AZITHROMYCIN 500 MG in DEXTROSE 5%-WATER 250 ML IV SCH (10:50)
--- NOTE | 2019-05-13 16:09 | PDOC PROGRESS REPORT ---
Subjective Progress Note for:: 05/13/19 Subjective:: Patient is a 43-year-old white male who presented for community-acquired pneumonia and sarcoidosis/pulmonary fibrosis flare. 05/13: Breathing significantly improved. Patient wants to ambulate today and potentially be discharged if his breathing is stable. No new complaints Reason For Visit: PNEUMONIA Physical Exam Vital Signs: Temp Pulse Resp BP Pulse Ox 97.6 F 74 18 161/97 H 98 05/13/19 14:50 05/13/19 14:50 05/13/19 14:50 05/13/19 14:50 05/13/19 14:50 Intake & Output 05/12/19 05/13/19 05/14/19 06:59 06:59 06:59 Intake Total 550 2490 636 Output Total 342 088 1219 Balance -175 1840 -639 Weight 59 kg 162.7 kg General appearance: PRESENT: no acute distress, well-developed, well-nourished Head exam: PRESENT: atraumatic, normocephalic Eye exam: PRESENT: conjunctiva pink Respiratory exam: PRESENT: crackles - Mild Velcro rales, unlabored, wheezes - Mild. ABSENT: tachypnea Cardiovascular exam: PRESENT: RRR. ABSENT: diastolic murmur, rubs, systolic murmur GI/Abdominal exam: PRESENT: normal bowel sounds, soft. ABSENT: distended, guarding, mass, organolmegaly, rebound, tenderness Extremities exam: ABSENT: pedal edema Neurological exam: PRESENT: alert, awake Psychiatric exam: PRESENT: appropriate affect, normal mood Skin exam: PRESENT: dry, intact, warm Results Laboratory Results: 05/12/19 06:05 05/12/19 06:05 05/11/19 12:00 Sputum Gram Stain - Final Impressions: Chest X-Ray 05/11/19 06:07 IMPRESSION: Mild fibrosis and emphysematous hyperinflation pattern. Stable. Assessment and Plan - Diagnosis (1) Community acquired pneumonia Qualifiers: Laterality: unspecified laterality Qualified Code(s): J18.9 - Pneumonia, unspecified organism Is this a current diagnosis for this admission?: Yes Plan: The patient is admitted to the medical floor on continuous cardiac telemetry. Blood and sputum cultures pending. He is empirically placed on IV Rocephin and azithromycin community-acquired pneumonia (although chest x-ray is negative; patient is febrile, with elevated WBCs, HPI and clinical exam supporting) Continue supplemental oxygen and BiPAP as needed to maintain oxygen saturations greater than 89%. Schedule and as needed nebulizer treatments. Mucinex twice daily. Pulmonary toilet. 05/12: Continue submental oxygen, positive pressure as needed. Continue pulmonary support as above. IV antibiotics continue, transition to p.o. when he has significant clinical improvement. Respiratory culture grew strep pneumoniae, adequately treated on ceftriaxone/azithromycin regimen (2) Respiratory failure with hypoxia Qualifiers: Chronicity: acute Qualified Code(s): J96.01 - Acute respiratory failure with hypoxia Is this a current diagnosis for this admission?: Yes Plan: Secondary to community-acquired pneumonia in the setting of pulmonary fibrosis and sarcoidosis. Evaluation management as above. Additionally, will provide IV Solu-Medrol. Patient takes prednisone 40 mg daily at baseline 05/12: IV steroids continued until sarcoid flare and/or pulmonary fibrosis flare improve significantly Significantly improved (3) Acute respiratory distress Is this a current diagnosis for this admission?: Yes (4) Pulmonary fibrosis Is this a current diagnosis for this admission?: Yes (5) Sarcoidosis Is this a current diagnosis for this admission?: Yes Plan: Stress dose steroids. Pulmonary support as above. 05/12: Patient states he may be on the lung transplant list in the near future if his respiratory status continues to deteriorate chronically Will need steroid taper and prompt pulmonology follow-up - Time Time Spent with patient: 15-24 minutes - Inpatient Certification I certify that my determination is in accordance with my understanding of Medicare's requirements for reasonable and necessary INPATIENT services [42 CFR 412.3e].: Yes
[2019-05-13 17:15] VITALS: BP 129/87
--- NOTE | 2019-05-13 17:42 | PDOC DISCHARGE SUMMARY ---
Impression - Admit/DC Date/PCP Admission Date/Primary Care Provider: 05/11/19 07:36 FRANCIE KILLIAN-Emily Discharge Date: 05/13/19 - Discharge Diagnosis (1) Community acquired pneumonia Is this a current diagnosis for this admission?: Yes (2) Respiratory failure with hypoxia Is this a current diagnosis for this admission?: Yes (3) Acute respiratory distress Is this a current diagnosis for this admission?: Yes (4) Pulmonary fibrosis Is this a current diagnosis for this admission?: Yes (5) Sarcoidosis Is this a current diagnosis for this admission?: Yes - Assessment Summary: Patient is a 43-year-old white male with a past medical history significant for severe COPD, pulmonary sarcoidosis, pulmonary fibrosis admitted here for acute respiratory failure due to acute exacerbation of these problems as well as new community-acquired pneumonia which was later determined to be caused by strep pneumoniae according to respiratory culture. Patient placed on appropriate IV antibiotics with ceftriaxone/azithromycin later transitioned to azithromycin oral/amoxicillin to complete 7-day course. He was started on IV methylprednisolone on admission later changed at discharge to prednisone 60 mg daily for 1 week and then he is to resume his 40 mg daily dosing at his usual home chronic dose prescribed by his semiconductor manufacturing technician. Patient is to follow-up closely with his semiconductor manufacturing technician and PCP after discharge. - Additional Information Resuscitation Status: Full Code Discharge Diet: Regular Discharge Activity: Activity As Tolerated, Slowly Increase Activity Referrals: [facility] [Outside] - 05/28/19 11:00 am Prescriptions: Amoxicillin 1 tab PO TID 3 Days #9 tab Prednisone [Deltasone 20 mg Tablet] 40 mg PO DAILY #63 Guaifenesin [Mucinex Sr 600 mg Tablet.sa] 600 mg PO Q12 5 Days tablet.sa Azithromycin [Zithromax [place]] 500 mg PO DAILY #1 pkg Home Medications: Fluticasone/Salmeterol [Advair 250-50 Diskus 14 Dose/Diskus] 1 puff IH Q12 08/28/16 Tiotropium [place] [Spiriva Handihaler 5 Cap/Kit (18 Mcg/Cap)] 1 cap IH DAILY 0 08/24/18 Amoxicillin 1 tab PO TID 3 Days #9 tab 05/13/19 Azithromycin [Zithromax [place]] 500 mg PO DAILY #1 pkg 05/13/19 Guaifenesin [Mucinex Sr 600 mg Tablet.sa] 600 mg PO Q12 5 Days tablet.sa Prednisone [Deltasone 20 mg Tablet] 40 mg PO DAILY #63 05/13/19 History of Present Illiness History of Present Illness: Patient is a 43-year-old white male with a past medical history significant for severe COPD, pulmonary sarcoidosis, pulmonary fibrosis admitted here for acute respiratory failure and CAP. Hospital Course Hospital Course: Patient is a 43-year-old white male with a past medical history significant for severe COPD, pulmonary sarcoidosis, pulmonary fibrosis admitted here for acute respiratory failure due to acute exacerbation of these problems as well as new community-acquired pneumonia which was later determined to be caused by strep pneumoniae according to respiratory culture. Patient placed on appropriate IV antibiotics with ceftriaxone/azithromycin later transitioned to azithromycin oral/amoxicillin to complete 7-day course. He was started on IV methylprednisolone on admission later changed at discharge to prednisone 60 mg daily for 1 week and then he is to resume his 40 mg daily dosing at his usual home chronic dose prescribed by his semiconductor manufacturing technician. Patient is to follow-up closely with his semiconductor manufacturing technician and PCP after discharge. Physical Exam Vital Signs: Temp Pulse Resp BP Pulse Ox 97.6 F 96 18 161/97 H 94 05/13/19 14:50 05/13/19 16:09 05/13/19 16:09 05/13/19 14:50 05/13/19 16:09 Intake & Output 05/12/19 05/13/19 05/14/19 06:59 06:59 06:59 Intake Total 550 2490 636 Output Total 477 771 8129 Balance -175 1840 -639 Weight 59 kg 162.7 kg General appearance: PRESENT: no acute distress, well-developed, well-nourished Head exam: PRESENT: atraumatic, normocephalic Eye exam: PRESENT: conjunctiva pink Mouth exam: PRESENT: moist Respiratory exam: PRESENT: rales - Chronic Velcro rales, baseline, unlabored. ABSENT: rhonchi, tachypnea, wheezes Cardiovascular exam: PRESENT: RRR. ABSENT: diastolic murmur, rubs, systolic murmur GI/Abdominal exam: PRESENT: normal bowel sounds, soft. ABSENT: distended, guarding, mass, organolmegaly, rebound, tenderness Extremities exam: ABSENT: pedal edema Neurological exam: PRESENT: alert, awake Psychiatric exam: PRESENT: appropriate affect, normal mood Skin exam: PRESENT: dry, intact, warm Results Laboratory Results: WBC 24.3 10^3/uL (4.0-10.5) H 05/12/19 06:05 RBC 4.80 10^6/uL (4.35-5.55) 05/12/19 06:05 Hgb 14.1 g/dL (13.5-17.0) 05/12/19 06:05 Hct 42.9 % (37.9-51.0) 05/12/19 06:05 MCV 90 fl (80-97) 05/12/19 06:05 MCH 29.4 pg (27.0-33.4) 05/12/19 06:05 MCHC 32.9 g/dL (32.0-36.0) 05/12/19 06:05 RDW 14.2 % (11.5-14.0) H 05/12/19 06:05 Plt Count 518 10^3/uL (150-450) H 05/12/19 06:05 Lymph % (Auto) Not Reportable 05/11/19 06:09 [place] % (Auto) Not Reportable 05/11/19 06:09 Eos % (Auto) Not Reportable 05/11/19 06:09 Baso % (Auto) Not Reportable 05/11/19 06:09 Absolute Neuts (auto) Not Reportable 05/11/19 06:09 Absolute Lymphs (auto) Not Reportable 05/11/19 06:09 Absolute Monos (auto) Not Reportable 05/11/19 06:09 Absolute Eos (auto) Not Reportable 05/11/19 06:09 Absolute Basos (auto) Not Reportable 05/11/19 06:09 Total Counted 100 05/11/19 06:09 Seg Neutrophils % Not Reportable 05/11/19 06:09 Seg Neuts % (Manual) 90 % (42-78) H 05/11/19 06:09 Lymphocytes % (Manual) 3 % (13-45) L 05/11/19 06:09 Monocytes % (Manual) 7 % (3-13) 05/11/19 06:09 Eosinophils % (Manual) 0 % (0-6) 05/11/19 06:09 Basophils % (Manual) 0 % (0-2) 05/11/19 06:09 Abs Neuts (Manual) 21.8 10^3/uL (1.7-8.2) H 05/11/19 06:09 Abs Lymphs (Manual) 0.7 10^3/uL (0.5-4.7) 05/11/19 06:09 Abs Monocytes (Manual) 1.7 10^3/uL (0.1-1.4) H 05/11/19 06:09 Absolute Eos (Manual) 0.0 10^3/uL (0.0-0.6) 05/11/19 06:09 Abs Basophils (Manual) 0.0 10^3/uL (0.0-0.2) 05/11/19 06:09 Toxic Granulation SLIGHT 05/11/19 06:09 Platelet Comment ADEQUATE 05/11/19 06:09 Poikilocytosis SLIGHT 05/11/19 06:09 Anisocytosis SLIGHT 05/11/19 06:09 Ovalocytes SLIGHT 05/11/19 06:09 Sodium 140.3 mmol/L (137-145) 05/12/19 06:05 Potassium 5.2 mmol/L (3.6-5.0) H D 05/12/19 06:05 Chloride 98 mmol/L (98-107) 05/12/19 06:05 Carbon Dioxide 34 mmol/L (22-30) H 05/12/19 06:05 Anion Gap 8 (5-19) 05/12/19 06:05 BUN 21 mg/dL (7-20) H 05/12/19 06:05 Creatinine 0.76 mg/dL (0.52-1.25) 05/12/19 06:05 Est GFR ( Amer) > 60 (>60) 05/12/19 06:05 Est GFR (MDRD) Non-Af > 60 (>60) 05/12/19 06:05 Glucose 130 mg/dL (75-110) H 05/12/19 06:05 Lactic Acid 1.0 mmol/L (0.7-2.1) 05/11/19 06:09 Calcium 10.0 mg/dL (8.4-10.2) 05/12/19 06:05 Influenza A (Rapid) NEGATIVE (NEGATIVE) 05/11/19 06:09 Influenza B (Rapid) NEGATIVE (NEGATIVE) 05/11/19 06:09 Impressions: Chest X-Ray 05/11/19 06:07 IMPRESSION: Mild fibrosis and emphysematous hyperinflation pattern. Stable. Plan Plan of Treatment: Antibiotics Steroid taper Prompt follow-up with outpatient physicians Time Spent: Greater than 30 Minutes Stroke Is this a Stroke Patient?: No Acute Heart Failure - Is this a Heart Failure Patient?: No
== END 2019-05-13 18:06 | disposition home or self-care (01) | DRG 193 ==
LOC: ER 05:52 → EH 07:36 → 4N 21:20
PROVIDERS: ADMIT Internal Medicine; ATTEND Internal Medicine
DX: J13 Pneumonia due to Streptococcus pneumoniae (principal); J96.01 Acute respiratory failure with hypoxia; J84.10 Pulmonary fibrosis, unspecified; D86.0 Sarcoidosis of lung; Z86.14 Personal history of Methicillin resistant Staphylococcus aureus infection
CPT/HCPCS: 36415; 71045; 80048; 83605; 85025; 85027; 87040; 87070; 87077; 87186; 87205; 87804; 93005; 93010; 94640; 94660; 99291; J0456; J0696; J1644; J1885; J2920; J3490; J7030; J7060; J7620

== ENCOUNTER → 2020-03-15 | Outpatient (CLI) | payer MEDICARE ==
--- NOTE | 2020-03-15 13:05 | RADIOLOGY REPORT (SQ) ---
EXAM DESCRIPTION: CT CHEST WITHOUT IMAGES COMPLETED DATE/TIME: 03/15/2020 10:38 am REASON FOR STUDY: J84.10 PULMONARY FIBROSIS, UNSPECIFIED J84.10 PULMONARY FIBROSIS, UNSPECIFIED COMPARISON: 05/01/2019 TECHNIQUE: CT scan performed of the chest without intravenous contrast. Images reviewed with lung, soft tissue and bone windows. Reconstructed coronal and sagittal MPR images reviewed. All images st ored on PACS. All CT scanners at this facility use dose modulation, iterative reconstruction, and/or weight based d osing when appropriate to reduce radiation dose to as low as reasonably achievable (ALARA). [facility]: Dose Right [facility]: CareDose [facility]: Dose Right [facility]: Teradose 4D [facility]: [employer] RADIATION DOSE: CT Rad equipment meets quality standard of care and radiation dose reduction techniq ues were employed. CTDIvol: 4.3 mGy. DLP: 194 mGy-cm. mGy. LIMITATIONS: No technical limitations. 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 A large bulla seen posteriorly in the right upper lobe on the prior study is smaller and appears to contain some solid material within it. There is adjacent pleural thickening. Pulmonary fibrosis in the posterior left upper lobe and in the lingula. HILAR AND MEDIASTINAL STRUCTURES: No identified masses or abnormal nodes. No obvious aneurysm. HEART AND VASCULAR STRUCTURES: No aneurysm. No pericardial effusion. UPPER ABDOMEN: Small intrarenal calculi in the right kidney. THYROID AND OTHER SOFT TISSUES: No masses. No adenopathy. BONES: No significant finding. HARDWARE: None in the chest. OTHER: No other significant findings. IMPRESSION: 1. 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 Is t here any clinical evidence of fungal infection such as aspergillosis? 2. Pulmonary fibrosis. 3. Small right intrarenal calculi. TECHNICAL DOCUMENTATION: JOB ID: [id number] Quality ID # [id number]: Final reports with documentation of one or more dose reduction techniques (e.g., Au tomated exposure control, adjustment of the mA and/or kV according to patient size, use of iterative reconstruction technique) 2010 [employer]- All Rights Reserved Reading location - IP/workstation name: [email or web address]
== END ==
LOC: RAD 10:24
PROVIDERS: ATTEND Internal Medicine Pulmonary Disease
DX: J84.10 Pulmonary fibrosis, unspecified (principal)
CPT/HCPCS: 71250